=== PATIENT | female | born 1990 | race Caucasian/White ===

== ENCOUNTER 2021-01-23 20:19 | Emergency (ER) | payer OTHER, SELFPAY ==
[2021-01-23 20:52] VITALS: BP 120/77; PULSE 80; RESP 16; TEMP 36.6; O2SAT 100; BMI 37.3
[2021-01-23 21:20] LABS: Appearance Urine HAZY; Color Urine YELLOW; Glucose Urine UA NEG (NEG); Leukocyte Esterase Urine NEG (NEG); Nitrite Urine NEG (NEG); Specific Gravity - Urine 1.025 (1.005-1.025); Urine Blood NEG (NEG); Urine Ketones NEG (NEG); Urine Protein NEG (NEG-TRACE)
[2021-01-23 21:23] LABS: UPreg QC Valid YES; Urine Pregnancy NEGATIVE (NEGATIVE)
--- NOTE | 2021-01-23 21:42 | ED.ABDPAIN ---
HPI - Abdominal Pain General Chief Complaint: Abdominal Pain Stated Complaint: dizzy, n/v/d, abd pain Time Seen by Provider: 01/23/21 21:41 Source: patient Mode of arrival: ambulatory Limitations: no limitations History of Present Illness HPI narrative: 30 yo female otherwise healthy works as [employer] WORK[employer] a lot of her clients have dizziness and diarrhea, she has both her COVID shots - felt dizzy at work and then noted some diarrhea feels fine now, her boss made her come get checked out. MD elicited complaint: abdominal pain Pertinent past history: none Onset (ago): hour(s) (3) Pain Consistency: now resolved Location: periumbilical Severity: mild Quality: cramping Radiation: none Migration to: no migration Exacerbating factors: nothing Relieving factors: nothing Context: sick contacts Associated symptoms: nausea, diarrhea and other (dizziness) Related Data Allergies Allergy/AdvReac Type Severity Reaction Status Date / Time mushroom Allergy Intermediate HIVES Verified 01/23/21 20:51 amoxicillin [AMOXICILLIN] Allergy Unknown ITCHY Verified 01/23/21 20:51 sulfamethoxazole Allergy Unknown HIVES Verified 01/23/21 20:51 [From BACTRIM] trimethoprim [From BACTRIM] Allergy Unknown HIVES Verified 01/23/21 20:51 mushrooms Allergy Unknown Swelling Uncoded 01/23/21 20:51 Review of Systems Review of Systems Constitutional : No Weight loss, No Fever, No Chills ENT/Mouth : No sore throat, No Rhinorrhea Eyes: No Swelling, No Redness Cardiovascular : No Chest Pain, No SOB, NoEdema Respiratory : No Cough, No Sputum, No Wheezing Gastrointestinal : Positive Nausea, no Vomiting, positive Diarrhea, positive abdominal Pain, No Hematochezia, No Melena Genitourinary : No Dysuria, No Urinary Frequency, No Hematuria, No Urgency Musculoskeletal : No joint pain, No Myalgias, No Joint Swelling Skin : No Skin Lesions, No rash Neuro : No Weakness, No Numbness, pos Dizziness, No Headache Psych : No Anxiety/Panic, No Depression Heme/Lymph: No Bruising, No Lymphadenopathy Endocrine : No Polyuria, No Polydipsia All other systems reviewed and are negative. Physical Exam Vital Signs: Vital Signs: Last Vital Signs Temp 98 F 01/23/21 20:52 Pulse 80 01/23/21 20:52 Resp 16 01/23/21 20:52 BP 120/77 01/23/21 20:52 Pulse Ox 100 01/23/21 20:52 Body Mass Index 37.3 Appearance: Alert. Oriented X3. No acute distress. Eyes: Pupils equal, round and reactive to light. ENT: Pharynx normal. Neck: Normal inspection. Neck supple. CVS: Normal heart rate and rhythm. Pulses normal. Respiratory: No respiratory distress. Breath sounds normal. Abdomen: Soft and non-tender. Skin: Skin warm and dry. Normal skin color. Normal skin turgor. Extremities: No lower extremity edema. No calf ttp Neuro: Oriented X 3. No motor deficit. No sensory deficit. 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, she has both her COVID shots - felt dizzy at work and then noted some diarrhea feels fine now, her boss made her come get checked out at this time the patient looks well not toxic, tolerating PO, benign exam - basic labs, UPT and fluids ordered Lab Data Result diagrams: 01/23/21 21:47 01/23/21 21:47 Labs: Lab Results 01/23/21 01/23/21 Range/Units 21:09 21:09 Urine Color YELLOW Urine Appearance HAZY Urine pH 6.0 (5.0-8.0) Ur Specific Morrow 1.025 (1.005-1.025) Urine Protein NEG (NEG-TRACE) MG/DL Urine Glucose (UA) NEG (NEG) MG/DL Urine Ketones NEG (NEG) MG/DL Urine Blood NEG (NEG) Urine Nitrite NEG (NEG) Ur Leukocyte Esterase NEG (NEG) Urine Test NEGATIVE (NEGATIVE) Discharge Plan Discharge Clinical Impression: Diarrhea Patient Disposition: Home, Self-Care Instructions: Acute Diarrhea (ED) Additional Instructions: return to ED for any worsening symptoms or concerns Referrals: Physician,Unknown [Primary Care Provider] - 2 days (PCP if not better) Stand Alone Forms: Work/School Release [facility] Past Medical History Attestation statement: The following information was validated with the patient. Medical History Anxiety Asthma Bipolar 1 disorder Bladder stone DDD (degenerative disc disease) Depression High cholesterol Kidney stone OCD (obsessive compulsive disorder) Ovarian cyst Pre-diabetes Sepsis Surgical History H/O tubal ligation Social History Social History (Updated 01/23/21 @ 22:05 by Angelique Foster DO) Patient Tobacco Use Status: Never used Tobacco Use of substances other than those prescribed or required for medical reasons: No Advance Directives: No Advance Directives Information Provided: No
[2021-01-23 21:51] LABS: MANUAL DIFF FLAG NO
[2021-01-23 21:56] LABS: Basophils Percent Auto 0.3 % (0-2); Eosinophils Absolute Auto 0.1 X10*3/uL (0.0-0.4); Hematocrit 41.8 % (37-47); Hemoglobin 13.8 g/dl (12.0-16.0); Imm Gran Abs Auto 0.04 X10*3/uL (0.00-0.03); Imm Gran Pct Auto 0.4 % (0.0-0.4); Lymphocytes Absolute Auto 2.9 X10*3/uL (1.2-4.9); Lymphocytes Percent Auto 25.8 % (20-40); Mean Corpuscular Hemoglobin 30.6 pg (27.0-33.0); Mean Corpuscular Volume 92.7 fL (80-98); Mean Platelet Volume 9.6 fL (9.4-12.3); Monocytes Absolute Auto 0.8 X10*3/uL (0.1-1.2); Monocytes Percent Auto 6.9 % (2-11); Neutrophils Absolute Auto 7.3 X10*3/uL (2.0-8.3); Neutrophils Percent Auto 65.6 % (45-73); Platelet Count 248 X10*3/uL (160-400); Red Blood Count 4.51 X10*6/uL (4.20-5.50); Red Cell Distribution Width 12.6 % (11.0-16.0); White Blood Count 11.1 X10*3/uL (4.8-10.8)
[2021-01-23] MEDS: 0.9 % Sodium Chloride 1,000 ML 999 ML IVCONT (22:02)
[2021-01-23] MEDS: ondansetron HCL 4 MG/2 ML VIAL IVPUSH (22:02)
[2021-01-23 22:26] LABS: Alanine Aminotransferase 22 U/L (0-31); Albumin Level 4.4 g/dL (3.5-5.0); Alkaline Phosphatase 80 U/L (39-117); Anion Gap 14 (12-20); Aspartate Amino Transferase 18 U/L (5-31); Bilirubin Total 0.4 mg/dL (0.0-1.0); Blood Urea Nitrogen 16 mg/dL (9-16); Calcium 9.9 mg/dL (8.4-10.2); Carbon Dioxide 26 mmol/L (22-29); Chloride 104 mmol/L (96-108); Estimated Glomerular Filt Rate > 60; Glucose Random 108 mg/dL (60-115); Potassium 4.4 mmol/L (3.3-5.1); Sodium 140 mmol/L (135-145); Total Protein 7.7 g/dL (6.5-8.0)
== END 2021-01-23 23:06 | disposition home or self-care (01) ==
PROVIDERS: Emergency Provider Emergency Medicine
DX: R19.7 Diarrhea, unspecified (principal)
CPT/HCPCS: 36415; 80053; 81003; 81025; 85025; 96361; 96374; 99283; 99284; J2405

== ENCOUNTER 2021-06-13 14:26 | Emergency (ER) | payer OTHER, SELFPAY ==
--- NOTE | ~2021-06-13 | XR_ITS ---
EXAMINATION: XR WRIST, LEFT CLINICAL INFORMATION: Pain. No known injury. COMPARISON: None TECHNIQUE: PA, lateral, and oblique views of the left wrist. FINDINGS: There is normal bony mineralization. The ulnar variance is neutral. There is no fracture, dislocation, destructive process. The ulnar variance is neutral. There is no joint narrowing or erosive change. No chondrocalcinosis. XR/XR wrist LT 2V IMPRESSION: No arthropathy.
--- NOTE | ~2021-06-13 | US_ITS ---
EXAMINATION: US VENOUS WITH DOPPLER UPPER EXTREMITY, LEFT CLINICAL INFORMATION: Left upper extremity pain and swelling. COMPARISON: None TECHNIQUE: Ultrasound of the upper extremity is performed using compression sonography and color and pulse Doppler flow with assessment of augmentation of flow. There is also imaging and Doppler assessment of the jugular and subclavian veins. Spectral analysis with color-flow imaging is performed. FINDINGS: Left internal jugular vein, subclavian vein and axillary vein demonstrates normal color and spectral flow consistent with patency. The left basilic, brachial and cephalic veins demonstrate normal compressibility and color flow consistent with patency. The left radial and ulnar veins demonstrate normal compressibility and color flow consistent with patency. A few mildly prominent lymph nodes are noted within the left neck, the largest measures 2.5 x 1.5 x 1.2 cm, nonspecific. If the patient's symptoms progress, a followup ultrasound in 5 -7 days might be of value to exclude proximal propagation from a nonvisualized distal arm vein. US/US venous duplex UE LT IMPRESSION: No DVT demonstrated in the left upper extremity.
[2021-06-13 15:18] VITALS: BP 103/75; PULSE 82; RESP 18; TEMP 36.1; O2SAT 98; BMI 39.6
--- NOTE | 2021-06-13 16:38 | ED_ITS ---
HPI - Extremity Problem General Chief complaint: Extremity Injury, Upper Stated complaint: lt arm pain/swelling Time Seen by Provider: 06/13/21 16:30 Source: patient Mode of arrival: ambulatory Limitations: no limitations History of Present Illness HPI Narrative: 31-year-old female with a history of arthritis, fibromyalgia, OCD, PTSD, bipolar, anxiety,, depression, chronic pain here with complaints of left wrist pain for the last 4-5 days with radiation of pain up the arm into the shoulder. Feels like the entire arm is swollen and painful. No injury or trauma. Patient did previously have an injury to the wrist and has had some chronic pain in the site since the initial injury. She occasionally has intermittent numbness and tingling of the left hand but this is been going on for several months. No fevers or chills. No recent surgery or travel. No OCP use. Related Data Previous Rx's Medication Instructions Recorded cyclobenzaprine 10 mg tablet 10 mg PO TID PRN #10 tab 06/13/21 ketorolac 10 mg tablet 10 mg PO Q8H PRN #15 tab 06/13/21 Allergies Allergy/AdvReac Type Severity Reaction Status Date / Time mushroom Allergy Intermediate HIVES Verified 06/13/21 15:17 amoxicillin [AMOXICILLIN] Allergy Unknown ITCHY Verified 06/13/21 15:17 sulfamethoxazole Allergy Unknown HIVES Verified 06/13/21 15:17 [From BACTRIM] trimethoprim [From BACTRIM] Allergy Unknown HIVES Verified 06/13/21 15:17 mushrooms Allergy Unknown Swelling Uncoded 01/23/21 20:51 Review of Systems Review of Systems: Yes all other systems are reviewed and are negative Constitutional: Constitutional: Reports no additional constitutional complaints, Denies body ache(s), Denies chills, Denies fever(s), Denies headache(s) and Denies weakness Eyes: Eyes: Reports no additional eye complaints and Denies change in vision ENT: Reports system reviewed and no additional complaints, except as documented, Denies dizziness, Denies headache(s), Denies nasal congestion, Denies nasal discharge and Denies neck pain Cardiovascular: Cardiovascular: Reports no additional cardiovascular complaints, Denies chest pain, Denies leg edema and Denies dyspnea Respiratory: Respiratory: Reports no additional respiratory complaints, Denies cough and Denies dyspnea Gastrointestinal: Gastrointestinal: Reports no additional gastrointestinal complaints, Denies abdominal pain, Denies diarrhea, Denies nausea and Denies vomiting Genitourinary: Genitourinary: Reports no additional female genitourinary co mplaints and Denies urinary incontinence Musculoskeletal: Musculoskeletal: Reports no additional musculoskeletal complaints, Denies back pain, Reports arthralgias, Reports joint swelling, Reports limited range of motion, Denies neck pain, Denies numbness and Denies tingling Integumentary/Breasts: Skin/Breast: Reports system reviewed and no additional complaints, except as docu and Denies rash Neurologic: Reports system reviewed and no additional complaints, except as documented, Denies Abnormal speech present, Denies dizziness, Denies headache(s), Denies numbness, Denies tingling and Denies weakness PMFSH Past Medical History Attestation statement: The following information was validated with the patient. Source: old records reviewed and nursing notes reviewed Medical History Anxiety Asthma Bipolar 1 disorder Bladder stone DDD (degenerative disc disease) Depression High cholesterol Kidney stone OCD (obsessive compulsive disorder) Ovarian cyst Pre-diabetes Sepsis Surgical History H/O tubal ligation Social History Social History Patient Tobacco Use Status: Never used Tobacco Advance Directives: No Advance Directives Information Provided: No Patient : No Physical Exam Vital Signs: Vital Signs: Last Vital Signs Temp 96.9 F 06/13/21 15:18 Pulse 82 06/13/21 15:18 Resp 18 06/13/21 15:18 BP 103/75 06/13/21 15:18 Pulse Ox 98 06/13/21 15:18 Body Mass Index 39.6 Const: General: cooperative, healthy appearing, comfortable and no acute distress Orientation/consciousness: patient oriented x3 Limitations: no limitations HENMT: Head: Yes normal to inspection Ears: hearing grossly normal bilaterally General nose exam: Normal external nose present Face and sinus: Yes normal facial exam Mouth: Normal oral and palatal mucosa present Throat: Yes posterior oropharynx normal Eyes: General: appearance normal, both eyes and all related structures Pupils: Equal, round and reactive pupils present Neck: Neck: Yes normal visual inspection Chest: Chest palpation & inspection: normal inspection of the chest Resp: Effort & Inspection: normal respiratory effort Auscultation: clear to auscultation bilaterally Cardio: Rate: regular rate Rhythm: regular rhythm Peripheral pulses: P eripheral pulses 2+ throughout GI: Inspection: Yes normal to inspection Palpation (GI): Soft to palpation and nontender Auscultation: normal bowel sounds Back/Spine/Pelvis: Thoracic/Lumbar Spine: thoracic and lumbar spine normal to inspection Skin: General skin exam: no rashes or lesions noted Neuro: General: patient oriented x3, no focal motor deficits and normal sensation to monofilament Cranial nerves: Yes Equal, round and reactive pupils present Cognition (Neuro): normal cognition Speech: No Abnormal speech present Gait exam (Neuro): Normal gait present Motor exam (neuro): 5/5 motor strength present throughout Extrem: Other: Tenderness to the entire left wrist with limited range of motion due to pain. Patient also has diffuse muscle tenderness in the left forearm and upper extremity but has full range of motion of these joints. She does have some swelling appreciated in the left forearm down extending over the dorsal hand. There are palpable distal pulses noted. No warmth or redness. General: Yes normal to inspection Course Course Course Narrative: 31-year-old female here with left upper extremity swelling and pain. Will check x-rays, ultrasound to rule out DVT and provide analgesia 1900- x-ray shows no acute finding. Ultrasound is negative for DVT. Less likely DVT. Likely secondary to fibromyalgia, chronic arthritis and pain reviewed worrisome signs and symptoms of when to return to the emergency department. Comfortable discharge home. MDM - Extremity (Nontraumatic) Medical Records Attestation: I reviewed the patient's medical records. Lab Data Attestation: I reviewed the patient's lab results. Imaging Data left wrist x-ray: Attestation: I personally reviewed and interpreted this imaging study as follows: Radiologist's impression: EXAMINATION: XR WRIST, LEFT CLINICAL INFORMATION: Pain. No known injury.? COMPARISON: None? TECHNIQUE: PA, lateral, and oblique views of the left wrist. FINDINGS: There is normal bony mineralization. The ulnar variance is neutral. There is no fracture, dislocation, destructive process. The ulnar variance is neutral. There is no joint narrowing or erosive change. No chondrocalcinosis.? XR/XR wrist LT 2V IMPRESSION: No arthropathy. ? Venous US: Attestation: I personally reviewed and interpreted this imaging study as follows: Radiologist's impression: FINDINGS: Left internal jugular vein, subclavian vein and axillary vein demonstrates normal color and spectral flow consistent with patency. The left basilic, brachial and cephalic veins demonstrate normal compressibility and color flow consistent with patency. The left radial and ulnar veins demonstrate normal compressibility and color flow consistent with patency. A few mildly prominent lymph nodes are noted within the left neck, the largest measures 2.5 x 1.5 x 1.2 cm, nonspecific. If the patient's symptoms progress, a followup ultrasound in 5 -7 days might be of value to exclude proximal propagation from a nonvisualized distal arm vein. US/US venous duplex UE LT IMPRESSION: No DVT demonstrated in the left upper extremity Discharge Plan Discharge Clinical Impression: Arthritis, Fibromyalgia Patient Disposition: Home, Self-Care Instructions: Fibromyalgia (ED), Musculoskeletal Pain (ED) Additional Instructions: YOUR ULTRASOUND SHOWED NO BLOOD CLOT YOUR X-RAY LOOKS NORMAL HEAT OR ICE TO THE AREA GENTLE STRETCHING FOLLOW-UP WITH YOUR PRIMARY CARE DOCTOR Prescriptions: New ketorolac 10 mg tablet 10 mg PO Q8H PRN (Reason: pain) Qty: 15 RF: 0 cyclobenzaprine 10 mg tablet 10 mg PO TID PRN (Reason: muscle spasm) Qty: 10 RF: 0 Referrals: Gee Marcano MD [Primary Care Provider] - 2 days
[2021-06-13] MEDS: Ketorolac Tromethamine 60 MG/2 ML VIAL IM (16:54)
== END 2021-06-13 19:26 | disposition home or self-care (01) ==
PROVIDERS: Emergency Provider Internal Medicine; PCP Internal Medicine
DX: M19.032 Primary osteoarthritis, left wrist (principal); M79.7 Fibromyalgia; M79.89 Other specified soft tissue disorders; M25.532 Pain in left wrist
CPT/HCPCS: 73100; 93971; 96372; 99284; J1885

== ENCOUNTER 2022-04-14 13:17 | Outpatient (REF) | payer MEDICAID, SELFPAY ==
--- NOTE | ~2022-04-14 | XR_ITS ---
EXAMINATION: XR SHOULDER, RIGHT CLINICAL INFORMATION: Pain COMPARISON: Right shoulder radiographs 03/07/2015 TECHNIQUE: Four views of the right shoulder. FINDINGS: No acute fracture or dislocation. Joint spaces are maintained. Soft tissues are unremarkable. XR/XR shoulder RT min 2V IMPRESSION: Unremarkable shoulder radiographs.
--- NOTE | ~2022-04-14 | XR_ITS ---
EXAMINATION: XR lumbar spine 4V min CLINICAL INFORMATION: Reason for Exam RUE NUMBNESS AND WEAKNESS COMPARISON: Lumbar spine radiographs 03/07/2015 TECHNIQUE: 3 views of the lumbar spine FINDINGS: 5 nonrib-bearing lumbar-type vertebral bodies. Schmorl's nodes are noted in the lower thoracic spine. Vertebral body heights are otherwise maintained. Alignment is maintained. No pars defects. Disc space heights are maintained. Paravertebral soft tissues are unremarkable. XR/XR lumbar spine 4V min IMPRESSION: * Schmorl's nodes are noted in the lower thoracic spine. Otherwise unremarkable lumbar spine radiographs.
[2022-04-14 14:33] LABS: Alanine Aminotransferase 74 U/L (0-31); Albumin Level 4.6 g/dL (3.5-5.0); Alkaline Phosphatase 72 U/L (39-117); Aspartate Amino Transferase 43 U/L (5-31); Bilirubin Direct 0.4 mg/dL (0.0-0.5); Bilirubin Total 1.3 mg/dL (0.0-1.0); Total Protein 8.3 g/dL (6.5-8.0)
[2022-04-14 15:13] LABS: Monotest Negative (Negative)
[2022-04-15 05:04] LABS: Hepatitis A Antibody IgG Nonreactive (Nonreactive); Hepatitis A Antibody IgM 0.26 Index (0-0.79); ~Hepatitis A Antibody IgG 0.37 S/CO (0.00-0.99); ~Hepatitis A Antibody IgM Nonreactive (Nonreactive)
[2022-04-16 08:57] LABS: EBV-NA IgG Index >600.00 U/mL; EBV-VCA IgM Ab <36.00 U/mL
[2022-04-17 12:02] LABS: Mitochondrial Antibodies NEGATIVE (NEGATIVE)
[2022-04-18 13:56] LABS: Smooth Muscle Antibody <20 U (<20)
== END 2022-04-14 13:18 | disposition home or self-care (01) ==
LOC: HO.XRAY 13:17
PROVIDERS: Absent Provider Emergency Medicine; PCP Family Medicine; Visit Provider Nurse Practitioner
DX: M25.511 Pain in right shoulder (principal); R74.01 Elevation of levels of liver transaminase levels; E66.01 Morbid (severe) obesity due to excess calories; Z68.41 Body mass index [BMI] 40.0-44.9, adult; E28.2 Polycystic ovarian syndrome; R73.03 Prediabetes
CPT/HCPCS: 36415; 72110; 73030; 80076; 82105; 86015; 86255; 86256; 86308; 86664; 86665; 86708; 86709; 99202

== ENCOUNTER 2022-06-10 09:47 | Outpatient (REF) | payer MEDICAID, SELFPAY ==
--- NOTE | 2022-06-10 09:51 | ECG_ITS ---
Test Reason : SOFT TISSUE DISORDER Blood Pressure : / mmHG Vent. Rate : 055 BPM Atrial Rate : 055 BPM P-R Int : 146 ms QRS Dur : 100 ms QT Int : 406 ms P-R-T Axes : 019 056 030 degrees QTc Int : 388 ms Sinus bradycardia RSR' or QR pattern in V1 suggests right ventricular conduction delay Otherwise normal ECG When compared with ECG of 29-AUG-2015 16:08, Vent. rate has decreased BY 54 BPM Nonspecific T wave abnormality no longer evident in Anterior leads Referred By: Clarice Euceda Electronically Signed By:SANDRA CAMPOS MD
[2022-06-10 10:32] LABS: D Dimer High Sensitivity 193 NG/ML
[2022-06-10 10:36] LABS: Appearance Urine Clear; Color Urine Yellow; Glucose Urine UA Negative (Negative); Leukocyte Esterase Urine Trace (Negative); Nitrite Urine Negative (Negative); PH 6.5 (5.0-9.0); Specific Gravity - Urine 1.015 (1.005-1.025); UMIC TRIGGER UACC YES; Urine Blood Negative (Negative); Urine Ketones Negative (Negative); Urine Protein Negative (Neg-Trace)
[2022-06-10 10:41] LABS: Bacteria Urine None Seen (None Seen); Hyaline Casts Urine 0-2 /LPF (0-2); RBC Urine 0-2 /HPF (0-2); WBC Urine 0-5 /HPF (0-5)
[2022-06-10 11:03] LABS: Erythrocyte Sedimentation Rate 27 MM/HR (0-20)
[2022-06-10 11:22] LABS: B Type Natriuretic Peptide 34 pg/mL (<100)
[2022-06-10 14:56] LABS: C Reactive Protein 0.67 mg/dL (< or = 0.50); Rheumatoid Factor < 15.0 IU/mL (<15.0)
== END 2022-06-10 09:48 | disposition home or self-care (01) ==
LOC: HO.LAB 09:47
PROVIDERS: PCP Family Medicine; Visit Provider Nurse Practitioner
DX: R74.01 Elevation of levels of liver transaminase levels (principal); K21.9 Gastro-esophageal reflux disease without esophagitis; R06.02 Shortness of breath; E28.2 Polycystic ovarian syndrome; E66.01 Morbid (severe) obesity due to excess calories; Z68.41 Body mass index [BMI] 40.0-44.9, adult; M54.9 Dorsalgia, unspecified; M79.89 Other specified soft tissue disorders
CPT/HCPCS: 36415; 81001; 83880; 85379; 85652; 86140; 86431; 93005; 99212

== ENCOUNTER → 2022-09-10 09:41 | Outpatient (BNVA) | payer MEDICAID, SELFPAY | PROVIDERS: PCP Family Medicine; Visit Provider Nurse Practitioner Family | DX: M53.3 Sacrococcygeal disorders, not elsewhere classified (principal); M79.7 Fibromyalgia; M47.816 Spondylosis without myelopathy or radiculopathy, lumbar region; G89.29 Other chronic pain; M79.641 Pain in right hand; G56.01 Carpal tunnel syndrome, right upper limb; E66.01 Morbid (severe) obesity due to excess calories; Z68.42 Body mass index [BMI] 45.0-49.9, adult | CPT/HCPCS: 99202 ==

== ENCOUNTER 2022-09-23 12:58 | Outpatient (REF) | payer MEDICAID, SELFPAY ==
--- NOTE | ~2022-09-23 | XR_ITS ---
EXAMINATION: XR LUMBOSACRAL SPINE CLINICAL INFORMATION: Pain COMPARISON: 04/14/2022 TECHNIQUE: Three views of the lumbosacral spine. FINDINGS: The vertebral bodies and posterior elements are normal. The disc spaces are preserved and the vertebral alignment is normal. The paraspinal soft tissues are normal. XR/XR lumbar spine 2-3V IMPRESSION: Unremarkable examination.
--- NOTE | ~2022-09-23 | XR_ITS ---
EXAMINATION: XR BILATERAL HIPS WITH AP PELVIS CLINICAL INFORMATION: Pain COMPARISON: None TECHNIQUE: AP view of the pelvis and single views of each hip were obtained. FINDINGS: The bones and soft tissues are normal. No fracture. Sacroiliac and hip joints are normal. Pubic symphysis is normal. No abnormal soft tissue calcifications. XR/XR hip BI w PEL1V IMPRESSION: Normal pelvis and hips.
== END 2022-09-23 12:59 | disposition home or self-care (01) ==
LOC: HO.XRAY 12:58
PROVIDERS: Absent Provider Emergency Medicine; PCP Family Medicine; Visit Provider Nurse Practitioner Family
DX: M47.816 Spondylosis without myelopathy or radiculopathy, lumbar region (principal); M53.3 Sacrococcygeal disorders, not elsewhere classified; M54.50 Low back pain, unspecified; G89.29 Other chronic pain
CPT/HCPCS: 72100; 73521

== ENCOUNTER 2022-11-10 13:21 | Outpatient (REF) | payer MEDICAID, SELFPAY ==
--- NOTE | ~2022-11-10 | XR_ITS ---
EXAMINATION: XR KNEE, LEFT XR KNEE, RIGHT XR KNEE, BILATERAL CLINICAL INFORMATION: Bilateral knee pain. COMPARISON: 09/05/2013 TECHNIQUE: AP standing views of both knees and lateral and sunrise views of both knees. FINDINGS: Right Knee: There is no evidence of acute fracture or dislocation of the right knee. Right knee joint spaces are maintained. No right knee effusion. There is minimal spurring seen about the medial joint space. Left Knee: There is no evidence of acute fracture or dislocation of the left knee. Joint spaces are maintained. No effusion is appreciated. XR/XR knee standing BI IMPRESSION: No significant bony abnormality or effusions involving the right or left knees.
--- NOTE | ~2022-11-10 | XR_ITS ---
EXAMINATION: XR KNEE, LEFT XR KNEE, RIGHT XR KNEE, BILATERAL CLINICAL INFORMATION: Bilateral knee pain. COMPARISON: 09/05/2013 TECHNIQUE: AP standing views of both knees and lateral and sunrise views of both knees. FINDINGS: Right Knee: There is no evidence of acute fracture or dislocation of the right knee. Right knee joint spaces are maintained. No right knee effusion. There is minimal spurring seen about the medial joint space. Left Knee: There is no evidence of acute fracture or dislocation of the left knee. Joint spaces are maintained. No effusion is appreciated. XR/XR knee RT 2V IMPRESSION: No significant bony abnormality or effusions involving the right or left knees.
--- NOTE | ~2022-11-10 | XR_ITS ---
EXAMINATION: XR KNEE, LEFT XR KNEE, RIGHT XR KNEE, BILATERAL CLINICAL INFORMATION: Bilateral knee pain. COMPARISON: 09/05/2013 TECHNIQUE: AP standing views of both knees and lateral and sunrise views of both knees. FINDINGS: Right Knee: There is no evidence of acute fracture or dislocation of the right knee. Right knee joint spaces are maintained. No right knee effusion. There is minimal spurring seen about the medial joint space. Left Knee: There is no evidence of acute fracture or dislocation of the left knee. Joint spaces are maintained. No effusion is appreciated. XR/XR knee LT 2V IMPRESSION: No significant bony abnormality or effusions involving the right or left knees.
== END 2022-11-10 13:22 | disposition home or self-care (01) ==
LOC: HO.HOSX 13:21
PROVIDERS: PCP Family Medicine; Visit Provider Physician Assistant
DX: M25.562 Pain in left knee (principal); M25.561 Pain in right knee; M54.16 Radiculopathy, lumbar region; M79.7 Fibromyalgia
CPT/HCPCS: 73560; 73565; 99202

== ENCOUNTER → 2022-12-17 10:20 | Outpatient (BNVA) | payer MEDICAID, SELFPAY | PROVIDERS: PCP Family Medicine; Visit Provider Nurse Practitioner Family | DX: M53.3 Sacrococcygeal disorders, not elsewhere classified (principal); M47.816 Spondylosis without myelopathy or radiculopathy, lumbar region; M79.18 Myalgia, other site; M79.7 Fibromyalgia; E66.01 Morbid (severe) obesity due to excess calories; Z68.41 Body mass index [BMI] 40.0-44.9, adult | CPT/HCPCS: 99212 ==

== ENCOUNTER 2022-12-29 09:38 | Outpatient (REF) | payer MEDICAID, SELFPAY ==
--- NOTE | ~2022-12-29 | XR_ITS ---
EXAMINATION: XR HAND, RIGHT CLINICAL INFORMATION: Pain. COMPARISON: Radiographs dated 03/07/2017. TECHNIQUE: PA, lateral, and oblique views of the right hand. FINDINGS: Bony alignment and mineralization are normal. No definite fracture is seen, and there is no dislocation. There is a mild ulnar positive variance. There is a tiny well-corticated rounded ossific density situated adjacent to the ulnar styloid, which likely represents an accessory ossification center or minimal chronic avulsion fragment. This was as well present on the radiographs dated 02/23/2017. Joint spaces are maintained. No erosions or soft tissue calcifications. XR/XR hand RT min 3V IMPRESSION: Stable examination. No acute fracture or dislocation is seen. There is no unusual degenerative change noted.
== END 2022-12-29 09:39 | disposition home or self-care (01) ==
LOC: HO.HOSX 09:38
PROVIDERS: Visit Provider Physician Assistant
DX: M79.641 Pain in right hand (principal); G89.29 Other chronic pain; G56.00 Carpal tunnel syndrome, unspecified upper limb
CPT/HCPCS: 73130; 99212

== ENCOUNTER 2023-01-12 07:11 | Outpatient (REF) | payer MEDICAID, SELFPAY ==
--- NOTE | ~2023-01-12 | FL_ITS ---
EXAMINATION: XR FLUOROSCOPY WITH IMAGES CLINICAL INFORMATION: Sacrococcygeal disorders, not elsewhere classified. COMPARISON: None available. TECHNIQUE: Fluoroscopy Supervised By: Dr. Courtney. Fluoroscopy Time: 0.1 minutes. Cumulative Dose: 4.26 mGy. DAP: 1.16 Gycm2. Images: 1. FINDINGS: Image demonstrates needle placement and contrast injection over the right sacroiliac joint FL/FL guidance in treatment room IMPRESSION: Fluoroscopy guidance for right sacroiliac joint injection
== END 2023-01-12 07:12 | disposition home or self-care (01) ==
LOC: CF 07:11
PROVIDERS: PCP Family Medicine; Visit Provider Anesthesiology
DX: M53.3 Sacrococcygeal disorders, not elsewhere classified (principal); M79.7 Fibromyalgia; M47.816 Spondylosis without myelopathy or radiculopathy, lumbar region; E66.01 Morbid (severe) obesity due to excess calories; Z68.41 Body mass index [BMI] 40.0-44.9, adult
CPT/HCPCS: 27096

== ENCOUNTER → 2023-01-22 14:09 | Outpatient (BNVA) | payer MEDICAID, SELFPAY | PROVIDERS: PCP Family Medicine; Visit Provider Nurse Practitioner Family | DX: M79.7 Fibromyalgia (principal); M53.3 Sacrococcygeal disorders, not elsewhere classified; M47.816 Spondylosis without myelopathy or radiculopathy, lumbar region; M79.18 Myalgia, other site; E66.01 Morbid (severe) obesity due to excess calories; Z68.41 Body mass index [BMI] 40.0-44.9, adult | CPT/HCPCS: 99212 ==

== ENCOUNTER 2023-01-28 09:33 | Outpatient (REF) | payer MEDICAID, SELFPAY ==
--- NOTE | 2023-01-28 09:37 | EMG_ITS ---
Right median and ulnar motor and sensory studies were performed. Right radial sensory study was performed. Median and lateral antecubital sensory studies were performed and paraspinal muscles were tested with a needle. IMPRESSION: Mild right ulnar neuropathy across cubital tunnel. MD CARLOS Miller/CODEY / [id number]
== END 2023-01-28 09:34 | disposition home or self-care (01) ==
LOC: HO.NEURO 09:33
PROVIDERS: PCP Family Medicine; Visit Provider Physician Assistant
DX: M79.641 Pain in right hand (principal); G89.29 Other chronic pain
CPT/HCPCS: 95886; 95910

== ENCOUNTER 2023-02-05 07:59 | Day surgery (SDC) | payer MEDICAID, SELFPAY ==
--- NOTE | 2023-02-04 09:22 | HO.ANESPROP2 ---
Documented by User: Ashley Leal NP 02/04/23 09:25 HPI - Anesthesia Eval Consult details Narrative: 32yo F for Right Therapeutic Sacroiliac Joint Injection *Multiple Allergies* PMFSH Active Problems Active Problems: All Active Problems (Updated 12/29/22 @ 09:21 by Chely Hernandez) Right hand pain (Acute) Lumbar radiculopathy (Acute) Carpal tunnel syndrome (Acute) Chronic pain of right hand (Acute) Sacroiliac joint pain (Acute) Lumbar spondylosis (Acute) Myofascial pain (Acute) Shortness of breath (Acute) Swelling of extremity (Acute) Back pain (Acute) GERD (gastroesophageal reflux disease) (Acute) Pre-diabetes (Acute) Transaminitis (Acute) Marijuana use (Acute) Fibromyalgia (Acute) PCOS (polycystic ovarian syndrome) (Acute) Morbid obesity with BMI of 40.0-44.9, adult (Acute) Past Medical History Medical History Alcohol abuse Allergic rhinitis Anxiety Asthma Bipolar 1 disorder Chronic low back pain DDD (degenerative disc disease) Depression High cholesterol History of stent insertion of renal artery Multiple drug allergies Nephrolithiasis Nocturnal dyspnea OCD (obsessive compulsive disorder) Ovarian cyst Pre-diabetes PTSD (post-traumatic stress disorder) Sepsis Family History Family History Maternal Grandmother Breast cancer Maternal Grandfather Colon cancer Sister Cancer Surgical History Surgical History H/O cystoscopy H/O lithotripsy H/O tubal ligation History of esophagogastroduodenoscopy (EGD) Social History Social History Alcohol intake: former Patient Tobacco Use Status: Former Tobacco user Quit Date: 2020 Tobacco use type: Cigarette Years Smoked: 15 Smoked in Last 30 Days: No Use of substances other than those prescribed or required for medical reasons: Yes Substance Use Type: Marijuana Substance Use Frequency: Daily Are you DNR?: No Advance Directives: No Advance Directives Information Provided: Yes Current occupational status: unemployed Meds Allergies Allergy/AdvReac Type Severity Reaction Status Date / Time amoxicillin [AMOXICILLIN] Allergy Severe ITCHY Verified 02/05/23 08:27 sulfamethoxazole Allergy Severe HIVES Verified 02/05/23 08:27 [From BACTRIM] trimethoprim [From BACTRIM] Allergy Severe HIVES Verified 02/05/23 08:27 acetaminophen [From Tylenol] Allergy Intermediate Hives Verified 02/05/23 08:27 mushroom Allergy Intermediate HIVES Verified 02/05/23 08:26 naproxen Allergy Intermediate Hives Verified 02/05/23 08:27 promethazine Allergy Intermediate Hives Verified 02/05/23 08:27 gabapentin AdvReac Severe suicidal Verified 02/05/23 08:26 ideation lactose AdvReac Severe intolerance Verified 02/05/23 08:26 to lactose acetaminophen Allergy Intermediate Hives Uncoded 02/05/23 08:27 Iron polypeptide Allergy Intermediate Itching Uncoded 02/05/23 08:27 mushrooms Allergy Intermediate Swelling Uncoded 02/05/23 08:27 Home Medications Medication Instructions Recorded Confirmed Last Taken Type albuterol sulfate 90 mcg/actuation 2 puff inhalation Q4-6H PRN 09/10/22 02/05/23 Unknown History aerosol inhaler (Ventolin HFA) wheezing diclofenac sodium 1 % topical gel See Rx Instructions .Route .COMPLEX 09/10/22 02/05/23 Unknown History lamotrigine 100 mg tablet 400 mg PO BID 01/22/23 02/05/23 Unknown History omeprazole 20 mg capsule,delayed 20 mg PO QAM 01/22/23 02/05/23 Unknown History release Exam Exam Date and Time: February 04, [id number] Narrative Narrative: EKG 2021 Vent. Rate : 055 BPM ? ? Atrial Rate : 055 BPM ?? P-R Int : 146 ms? QRS Dur : 100 ms ? ? QT Int : 406 ms ? ? ? P-R-T Axes : 019 056 030 degrees ?? QTc Int : 388 ms ? Sinus bradycardia RSR' or QR pattern in V1 suggests right ventricular conduction delay Otherwise normal ECG When compared with ECG of 29-AUG-2015 16:08, Vent. rate has decreased BY? 54 BPM Nonspecific T wave abnormality no longer evident in Anterior leads Assessment and Plan Assessment Anesthesia Assessment: Chart Reviewed Documented by User: Yuval Laazr MD 02/05/23 08:57 PMFSH Past Medical History Medical History Alcohol abuse Allergic rhinitis Anxiety Asthma Bipolar 1 disorder Chronic low back pain DDD (degenerative disc disease) Depression High cholesterol History of stent insertion of renal artery Multiple drug allergies Nephrolithiasis Nocturnal dyspnea OCD (obsessive compulsive disorder) Ovarian cyst Pre-diabetes PTSD (post-traumatic stress disorder) Sepsis Family History Family History Maternal Grandmother Breast cancer Maternal Grandfather Colon cancer Sister Cancer Family history of problems with anesthesia: No Surgical History Surgical History H/O cystoscopy H/O lithotripsy H/O tubal ligation History of esophagogastroduodenoscopy (EGD) History of Problems with Anesthesia: No Social History Social History Alcohol intake: former Patient Tobacco Use Status: Former Tobacco user Quit Date: 2020 Tobacco use type: Cigarette Years Smoked: 15 Smoked in Last 30 Days: No Use of substances other than those prescribed or required for medical reasons: Yes Substance Use Type: Marijuana Substance Use Frequency: Daily Are you DNR?: No Advance Directives: No Advance Directives Information Provided: Yes Current occupational status: unemployed Meds Allergies Allergy/AdvReac Type Severity Reaction Status Date / Time amoxicillin [AMOXICILLIN] Allergy Severe ITCHY Verified 02/05/23 08:27 sulfamethoxazole Allergy Severe HIVES Verified 02/05/23 08:27 [From BACTRIM] trimethoprim [From BACTRIM] Allergy Severe HIVES Verified 02/05/23 08:27 acetaminophen [From Tylenol] Allergy Intermediate Hives Verified 02/05/23 08:27 mushroom Allergy Intermediate HIVES Verified 02/05/23 08:26 naproxen Allergy Intermediate Hives Verified 02/05/23 08:27 promethazine Allergy Intermediate Hives Verified 02/05/23 08:27 gabapentin AdvReac Severe suicidal Verified 02/05/23 08:26 ideation lactose AdvReac Severe intolerance Verified 02/05/23 08:26 to lactose acetaminophen Allergy Intermediate Hives Uncoded 02/05/23 08:27 Iron polypeptide Allergy Intermediate Itching Uncoded 02/05/23 08:27 mushrooms Allergy Intermediate Swelling Uncoded 02/05/23 08:27 Home Medications Medication Instructions Recorded Confirmed Last Taken Type albuterol sulfate 90 mcg/actuation 2 puff inhalation Q4-6H PRN 09/10/22 02/05/23 Unknown History aerosol inhaler (Ventolin HFA) wheezing diclofenac sodium 1 % topical gel See Rx Instructions .Route .COMPLEX 09/10/22 02/05/23 Unknown History lamotrigine 100 mg tablet 400 mg PO BID 01/22/23 02/05/23 Unknown History omeprazole 20 mg capsule,delayed 20 mg PO QAM 01/22/23 02/05/23 Unknown History release Exam Airway Mallampati Class: III TM Dist: >3cm Neck ROM: Limited Heart: rrr Lungs: cta Assessment and Plan Final Anesthetic Review Family History of Problems with Anesthesia: No History of Problems with Anesthesia: No NPO: Yes ASA Class: III Final Preanesthetic Review: No Changes in Pt Med Stat, Meds/Allgs Chart Reviewed, Consent Obtained/Reviewed and Anes Risks/Benef Reviewed Patient Risk: Intermediate Procedure Risk: Low Anesthetic Plan Anesthetic Plan: MAC: and Agree w/ Assess. and Plan Disposition: Standard PACU
--- NOTE | ~2023-02-05 | FL_ITS ---
EXAMINATION: XR FLUOROSCOPY WITH IMAGES CLINICAL INFORMATION: Therapeutic sacroiliac joint injection, right COMPARISON: None available. TECHNIQUE: Fluoroscopy Supervised By: Dr. Maciej Courtney. Fluoroscopy Time: 0.1 minute. Cumulative Dose: 3.32 mGy. DAP: 0.877 Gycm2. Images: 1. FINDINGS: There is single image reveals needle position of the right SI joint and contrast opacifying the soft tissues for pain management. The joint space is maintained normal. No gross bony abnormality. FL/FL guidance in OR IMPRESSION: Fluoroscopy was provided to referring physician for right SI joint pain management
[2023-02-05 08:27] VITALS: BMI 36.9
[2023-02-05 08:35] VITALS: PULSE 71; RESP 18; O2SAT 96
[2023-02-05] MEDS: Albuterol Sulfate (0.083%) 2.5 MG/3 ML VIAL.NEB INHALE (08:35)
[2023-02-05 08:42] VITALS: BP 162/93; PULSE 97; RESP 16; TEMP 36.6; O2SAT 97
--- NOTE | 2023-02-05 08:55 | MHC.SHP ---
Pre-Procedural Eval Section A Date of Service: 02/05/23 The patient is an INPATIENT: No Changes since office visit: Yes Patient answered all questions The History & Physical has been completed within 30 days and I have reviewed it.: No Section B Chief Complaint: Sacrococcygeal disorders, not elsewhere classified Details of Present Illness: as above Relevant Family History (Specify if Yes): No Relevant Social History: None Present Medications: None Medical History: No relevant PMH History of Previous Operations: No relevant previous surgery Allergies: Allergies Allergy/AdvReac Type Severity Reaction Status Date / Time amoxicillin [AMOXICILLIN] Allergy Severe ITCHY Verified 02/05/23 08:27 sulfamethoxazole Allergy Severe HIVES Verified 02/05/23 08:27 [From BACTRIM] trimethoprim [From BACTRIM] Allergy Severe HIVES Verified 02/05/23 08:27 acetaminophen [From Tylenol] Allergy Intermediate Hives Verified 02/05/23 08:27 mushroom Allergy Intermediate HIVES Verified 02/05/23 08:26 naproxen Allergy Intermediate Hives Verified 02/05/23 08:27 promethazine Allergy Intermediate Hives Verified 02/05/23 08:27 gabapentin AdvReac Severe suicidal Verified 02/05/23 08:26 ideation lactose AdvReac Severe intolerance Verified 02/05/23 08:26 to lactose acetaminophen Allergy Intermediate Hives Uncoded 02/05/23 08:27 Iron polypeptide Allergy Intermediate Itching Uncoded 02/05/23 08:27 mushrooms Allergy Intermediate Swelling Uncoded 02/05/23 08:27 Review of Systems Sugical H&P ROS: Negative: Constitution, Cardiovascular, Respiratory, Neurological, Psychiatric, Hem-Onc, Allergic/Immunologic, Gastrointestinal, Genitourinary, Musculoskeletal, Integumentary, Endocrine and Eyes/Ears/Nose/Throat Exam Surgical H&P Exam: Normal: HEENT, Normal: Heart, Normal: Lungs, Normal: Extremities, Normal: Abdomen, Normal: Skin and Normal: Neurological Plan Diagnosis/Plan: Unchanged I have reviewed the history and physical and performed a pertinent physical examination on my patient. No changes have occurred unless specified. Time Spent With Patient Time: Total time managing care of this patient today ____ minutes.
[2023-02-05] MEDS: Lactated Ringers 1,000 ML 100 ML IVCONT (08:58)
--- NOTE | 2023-02-05 09:00 | PC.NURSE ---
Patient arrived to preop. Respiratory nurse administering PRN albuterol neb at bedside due to diminished lung sounds throughout. Dr. Courtney at bedside talking to patient during this treatment. Mouthpiece of nebulizer treatment constantly removed from patients mouth to answer questions. This observed by Dr. Soriano and because of this, new order for additional 2 puffs Ventolin prior to OR.
[2023-02-05] MEDS: Albuterol Sulfate 90 MCG 8 GM INHALER 2 PUFF INHALE (09:48)
--- NOTE | 2023-02-05 10:07 | P.BOP_ITS ---
Brief Operative Note Date of Service: 02/05/23 Pre-op diagnosis: sacroiliitis Post-op diagnosis: same Procedure: right SI joint injection Surgeon: Maciej Courtney MD Anesthesia: MAC Was an Cigarette Making Machine Operator used for this Procedure?: No Estimated blood loss (mL): 0 Condition: stable Disposition: PACU
--- NOTE | 2023-02-05 10:08 | W.PM.OPN ---
Operative Note Operative Note Date of Service: 02/05/23 Narrative: Right Therapeutic sacroiliac joint injection. Informed consent was explained thoroughly to the patient.? All questions about benefits and risks for the procedure were answered. Patient came to the operating room and was positioned prone on the operating table with the pillow under the pelvis. [employer] [employer] monitors were applied and patient was deeply sedated. Despite being sedated patient remained restless on stimulation during the case. Anesthesiologist suggested that patient is hard to get anesthesia because of her chronic cannabis consumption. Time out was performed delineating name and of the patient, allergies and the nature of the procedure. ?The lower back and buttocks of the patient were prepped with ChloraPrep prepped and draped with sterile utility towels.? C-arm was brought over the operating field and sq picture of patient's pelvis was demonstrated on the screen.? For the right joint tilting C-arm contralateral to the site of the joint the most posterior portion of the joints was superimposed with anterior silhouette of the joint.? Skin was injected in the projection of the joint slightly medial to the location of the joint with 25 gauge 1/2 inch needle using local lidocaine 2% .After that 22 gauge 3 and 1/2 inch needle was driven to the right joint in tunnel vision fashion.? When needle entered the joint capsule injection of the contrast was performed demonstrating intra-articular and periarticular spread of the contrast.? After that 5 cc. of ropivacaine 0.5%?mixed with Kenalog 40 mgwas injected into the? joint.? Upon completion of the injections the needle was removed, sterile dressing was applied.? Upon completion of the injection patient was taken outside of the operating room to the recovery room where she? recovered uneventfully.
[2023-02-05 10:15] VITALS: BP 129/82; PULSE 86; RESP 16; TEMP 36.6; O2SAT 95
[2023-02-05 10:30] VITALS: BP 128/73; PULSE 74; RESP 16; TEMP 36.3; O2SAT 96
== END 2023-02-05 10:39 | disposition home or self-care (01) ==
PROVIDERS: PCP Family Medicine; Visit Provider Anesthesiology
PROC: 3E0U33Z Introduction of Anti-inflammatory into Joints, Percutaneous Approach (ICD-10-PCS; CPT 27096; principal; 2023-02-05 09:50)
DX: M53.3 Sacrococcygeal disorders, not elsewhere classified (principal); M47.816 Spondylosis without myelopathy or radiculopathy, lumbar region; M79.7 Fibromyalgia; J45.909 Unspecified asthma, uncomplicated; F12.90 Cannabis use, unspecified, uncomplicated; Z88.0 Allergy status to penicillin; Z88.2 Allergy status to sulfonamides
CPT/HCPCS: 27096; 94640; J3301

== ENCOUNTER → 2023-02-05 07:59 | Outpatient (BNV) | payer MEDICAID, SELFPAY | PROVIDERS: PCP Family Medicine; Visit Provider Anesthesiology | DX: M53.3 Sacrococcygeal disorders, not elsewhere classified (principal) | CPT/HCPCS: 27096; 99499 ==

== ENCOUNTER 2023-02-10 09:24 | Outpatient (REF) | payer MEDICAID, SELFPAY ==
--- NOTE | ~2023-02-10 | MR_ITS ---
EXAMINATION: MRI HAND WITHOUT CONTRAST, RIGHT CLINICAL INFORMATION: Carpal tunnel syndrome COMPARISON: X-ray 12/29/2022 TECHNIQUE: MRI of the wrist without contrast is performed in a 1.5 Cassie high-field scanner. FINDINGS: BONE/JOINTS: The small ossific density seen adjacent to the ulna styloid on the recent x-ray is not evident on the MRI. Small degenerative appearing cyst in the capitate. No evidence of acute fracture or dislocation. Mild first MCP arthritis. No erosive changes are identified. No significant wrist joint effusion. SOFT TISSUE: No focal fluid collections are seen. MUSCLE/TENDONS: Intact. No appreciable tenosynovitis. LIGAMENTS: The scapholunate, lunotriquetral ligaments and TFCC are not well evaluated in this large [id number], the proximal margin of the study.. MEDIAN NERVE: Appears within normal limits. MR/MR hand RT wo con IMPRESSION: 1. Mild first CMC arthritis. No evidence of acute fracture. 2. Median nerve appears within normal limits. Further evaluation with EMG as clinically warranted.
== END 2023-02-10 09:25 | disposition home or self-care (01) ==
LOC: HO.MRI 09:24
PROVIDERS: PCP Family Medicine; Visit Provider Physician Assistant
DX: G56.01 Carpal tunnel syndrome, right upper limb (principal); M79.641 Pain in right hand
CPT/HCPCS: 73218

== ENCOUNTER 2023-08-16 10:16 | Outpatient (AMB) | payer MEDICAID, SELFPAY ==
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
[2023-08-16 10:30] VITALS: BP 147/93; PULSE 77; O2SAT 98; BMI 35.7
== END 2023-08-16 10:56 | disposition home or self-care (01) ==
PROVIDERS: PCP Family Medicine; Visit Provider Nurse Practitioner Family
DX: M53.3 Sacrococcygeal disorders, not elsewhere classified (principal); Z91.81 History of falling; M47.816 Spondylosis without myelopathy or radiculopathy, lumbar region
CPT/HCPCS: 99214

== ENCOUNTER → 2023-08-16 10:16 | Outpatient (BNVA) | payer MEDICAID, SELFPAY | PROVIDERS: PCP Family Medicine; Visit Provider Nurse Practitioner Family | DX: M53.3 Sacrococcygeal disorders, not elsewhere classified (principal); M47.816 Spondylosis without myelopathy or radiculopathy, lumbar region; Z91.81 History of falling | CPT/HCPCS: 99212 ==

== ENCOUNTER 2023-08-17 11:43 | Outpatient (REF) | payer MEDICAID, SELFPAY ==
--- NOTE | ~2023-08-17 | XR_ITS ---
EXAMINATION: XR SACRUM AND COCCYX CLINICAL INFORMATION: Sacrococcygeal disorders COMPARISON: None available. TECHNIQUE: 2 views of the sacrum and 2 views of the coccyx were obtained. FINDINGS: There are no fractures. No bone, joint or soft tissue abnormality is demonstrated. XR/XR sacrum coccyx min 2V IMPRESSION: Unremarkable examination.
--- NOTE | ~2023-08-17 | XR_ITS ---
EXAMINATION: XR LUMBOSACRAL SPINE WITH OBLIQUES CLINICAL INFORMATION: 33-year-old female with pain following fall COMPARISON: None available. TECHNIQUE: AP, both oblique, and lateral views of the lumbar spine. Lateral view of the lumbosacral junction. FINDINGS: There are 5 not ribs bearing vertebral bodies. The vertebral bodies and posterior elements are normal. The disc spaces are preserved and the vertebral alignment is normal. There is no evidence of spondylolysis or listhesis. Sacroiliac joints are preserved. The paraspinal soft tissues are normal. XR/XR lumbar spine 4V min IMPRESSION: Unremarkable examination.
== END 2023-08-17 11:44 | disposition home or self-care (01) ==
LOC: HO.XRAY 11:43
PROVIDERS: PCP Family Medicine; Visit Provider Nurse Practitioner Family
DX: M53.3 Sacrococcygeal disorders, not elsewhere classified (principal); M47.816 Spondylosis without myelopathy or radiculopathy, lumbar region; Z91.81 History of falling
CPT/HCPCS: 72110; 72220

== ENCOUNTER 2023-08-30 10:09 | Outpatient (AMB) | payer MEDICAID, SELFPAY ==
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
[2023-08-30 10:14] VITALS: BP 109/82; PULSE 90; O2SAT 97; BMI 35.6
== END 2023-08-30 10:25 | disposition home or self-care (01) ==
PROVIDERS: PCP Family Medicine; Visit Provider Nurse Practitioner Family
DX: M53.3 Sacrococcygeal disorders, not elsewhere classified (principal); M47.816 Spondylosis without myelopathy or radiculopathy, lumbar region; M54.9 Dorsalgia, unspecified
CPT/HCPCS: 99213

== ENCOUNTER → 2023-08-30 10:09 | Outpatient (BNVA) | payer MEDICAID, SELFPAY | PROVIDERS: PCP Family Medicine; Visit Provider Nurse Practitioner Family | DX: M53.3 Sacrococcygeal disorders, not elsewhere classified (principal); M47.816 Spondylosis without myelopathy or radiculopathy, lumbar region; M54.9 Dorsalgia, unspecified | CPT/HCPCS: 99212 ==

== ENCOUNTER 2023-11-08 14:29 | Outpatient (REF) | payer MEDICAID, SELFPAY ==
[2023-11-08 16:11] LABS: MANUAL DIFF FLAG NO
[2023-11-08 16:21] LABS: Basophils Percent Auto 0.3 % (0-2); Eosinophils Absolute Auto 0.1 X10*3/uL (0.0-0.4); Eosinophils Percent Auto 0.8 % (0-4); Hematocrit 46.5 % (37.0-47.0); Hemoglobin 15.2 g/dl (12.0-16.0); Imm Gran Abs Auto 0.03 X10*3/uL (0.00-0.03); Imm Gran Pct Auto 0.3 % (0.0-0.4); Lymphocytes Absolute Auto 2.5 X10*3/uL (1.2-4.9); Lymphocytes Percent Auto 24.4 % (20-40); Mean Corpuscular HGB Conc 32.7 g/dl (31.0-35.0); Mean Corpuscular Volume 94.9 fL (80.0-98.0); Monocytes Absolute Auto 0.6 X10*3/uL (0.1-1.2); Neutrophils Absolute Auto 6.9 x10*3/uL (2.0-8.3); Neutrophils Percent Auto 68.2 % (45-73); Platelet Count 293 X10*3/uL (160-400); Red Cell Distribution Width 13.2 % (11.0-16.0); White Blood Count 10.2 X10*3/uL (4.8-10.8)
[2023-11-08 16:22] LABS: Estimated Average Glucose 91 mg/dL; Hemoglobin A1c % 4.8 % (<6.0)
[2023-11-08 16:50] LABS: Alanine Aminotransferase 22 U/L (0-31); Albumin Level 4.7 g/dL (3.5-5.0); Alkaline Phosphatase 79 U/L (39-117); Anion Gap 10 (12-20); Aspartate Amino Transferase 15 U/L (5-31); Bilirubin Total 1.1 mg/dL (0.0-1.0); Blood Urea Nitrogen 14 mg/dL (9-16); Calcium 9.7 mg/dL (8.4-10.2); Carbon Dioxide 28 mmol/L (22-29); Chloride 104 mmol/L (96-108); Cholesterol 238 mg/dL (<200); Estimated Glomerular Filt Rate > 60; Glucose Random 90 mg/dL (60-115); HDL Cholesterol 35 mg/dL (>40); LDL Cholesterol Calculated 176 mg/dL (<100); Potassium 4.1 mmol/L (3.3-5.1); Sodium 138 mmol/L (135-145); Total Protein 8.6 g/dL (6.5-8.0); Triglycerides 137 mg/dL (<150)
[2023-11-08 16:55] LABS: TSH reflex Free T4 1.37 uIU/mL (0.32-4.0)
[2023-11-08 17:23] LABS: Appearance Urine Turbid; Color Urine Dark Yellow; Glucose Urine UA Negative (Negative); Leukocyte Esterase Urine Moderate (2+) (Negative); Nitrite Urine Positive (Negative); PH 5.5 (5.0-9.0); Specific Gravity - Urine 1.025 (1.005-1.025); UMIC TRIGGER UA YES; Urine Blood Negative (Negative); Urine Ketones Trace mg/dL (Negative); Urine Protein Trace mg/dL (Neg-Trace)
[2023-11-08 17:46] LABS: Bacteria Urine 4+ (None Seen); Calcium Oxalate Crystals Urine Present; Hyaline Casts Urine 0-2 /LPF (0-2); RBC Urine 0-2 /HPF (0-2); WBC Urine 21-50 /HPF (0-5)
[2023-11-08 19:14] LABS: Reflex LDLD? No
[2023-11-09 04:08] LABS: Syphilis Screen Nonreactive (Nonreactive)
[2023-11-09 04:14] LABS: Hepatitis A Antibody IgG Nonreactive (Nonreactive); ~Hepatitis A Antibody IgG 0.61 S/CO (0.00-0.99)
[2023-11-09 04:23] LABS: HBS Num1 7.56 mIU/mL (0-7.99); HBc Num1 0.07 S/CO (0.00-0.79); HBsAGNum1 0.33 S/CO (0.00-0.99); HIV AB/AG Nonreactive (Nonreactive); HIV Num 1 0.05 S/CO (0.00-0.99); Hepatitis B Core Antibody Nonreactive (Nonreactive); Hepatitis B Surface Antigen Negative (Negative); ~HepC Num1 0.07 S/CO (0.00-0.79); ~Hepatitis B Surface Antibody NONREACTIVE (Nonreactive); ~Hepatitis C Antibody Nonreactive (Nonreactive)
[2023-11-09 11:18] LABS: Prolactin 2.9 ng/mL
== END 2023-11-08 14:30 | disposition home or self-care (01) ==
LOC: HO.HHCL 14:29
PROVIDERS: Visit Provider Family Medicine
DX: Z11.3 Encounter for screening for infections with a predominantly sexual mode of transmission (principal); Z11.4 Encounter for screening for human immunodeficiency virus [HIV]; K76.0 Fatty (change of) liver, not elsewhere classified; N64.52 Nipple discharge; R82.90 Unspecified abnormal findings in urine
CPT/HCPCS: 36415; 80053; 80061; 81001; 83036; 84146; 84443; 85025; 86704; 86706; 86708; 86780; 86803; 87340; 87389

== ENCOUNTER 2024-06-08 11:48 | Outpatient (REF) | payer MEDICAID, SELFPAY ==
[2024-06-08 13:30] LABS: Estimated Average Glucose 91 mg/dL; Hemoglobin A1C 107.6977 umol/L; Hemoglobin A1c % 4.8 % (<6.0); Total Hemoglobin (HGBA1C) 3668.8823 umol/L
[2024-06-08 14:16] LABS: Alanine Aminotransferase 30 U/L (0-31); Albumin Level 3.9 g/dL (3.5-5.0); Alkaline Phosphatase 77 U/L (39-117); Anion Gap 11 (12-20); Aspartate Amino Transferase 20 U/L (5-31); Bilirubin Total 0.3 mg/dL (0.0-1.0); Blood Urea Nitrogen 10 mg/dL (9-16); Carbon Dioxide 28 mmol/L (22-29); Chloride 106 mmol/L (96-108); Cholesterol 151 mg/dL (<200); Estimated Glomerular Filt Rate > 60; Glucose Random 91 mg/dL (60-115); HDL Cholesterol 42 mg/dL (>40); LDL Cholesterol Calculated 81 mg/dL (<100); Potassium 3.7 mmol/L (3.3-5.1); Sodium 141 mmol/L (135-145); Total Protein 6.8 g/dL (6.5-8.0); Triglycerides 140 mg/dL (<150)
[2024-06-08 14:45] LABS: Reflex LDLD? No
== END 2024-06-08 11:49 | disposition home or self-care (01) ==
LOC: HO.HHCL 11:48
PROVIDERS: Visit Provider Family Medicine
DX: R55 Syncope and collapse (principal)
CPT/HCPCS: 36415; 80053; 80061; 83036; 84443

== ENCOUNTER 2024-06-19 13:35 | Outpatient (REF) | payer MEDICAID, SELFPAY | END 2024-06-19 13:36 | disposition home or self-care (01) | LOC: HO.CT 13:35 | PROVIDERS: PCP Family Medicine; Visit Provider Student in an Organized Health Care Education/Training Program | DX: Z13.89 Encounter for screening for other disorder (principal) ==

== ENCOUNTER 2024-12-19 12:24 | Outpatient (REF) | payer MEDICAID, SELFPAY ==
[2024-12-19 13:34] LABS: MANUAL DIFF FLAG NO
--- OUTSIDE RECORDS SUMMARY | 2024-12-19 13:48 | XMS_ITS | Encounter Summary ---
Author Organization [employer] Address [address] [place] [address] 7 [place] [address] Care Team Providers Care Barge Hand Name Role Phone Kimmy Drake MD Primary Care Provider [phone] Reason for Visit * Reason Comments Med Change Request Encounter Details Date Type Department Care Team ([facility] Contact Info) Description 02/09/2023 Refill [facility] [address] [place], [place] [phone] Kimmy Drake MD [address] [place] [address] Gastroesophageal reflux disease, unspecified whether esophagitis present Social History Tobacco Use Types Packs/Day Years Used Date Smoking Tobacco: Former Cigarettes Q uit: 10/21/2020 Passive Smoke Exposure: Past Smokeless Tobacco: Never Comments Unknown Sex and Gender Information Value Date Recorded Sex Assigned at Female 05/18/2022 10:20 AM EDT Legal Sex Female 10:20 AM EDT Gender Identity Female 05/18/2022 10:20 AM EDT Sexual Orientation Straight 05/18/2022 10 :20 AM EDT documented as of this encounter Plan of Treatment Not on file documented as of this encounter Visit Diagnoses Diagnosis Gastroesophageal reflux disease, unspecified whether esophagitis present documented in this encounter Additional Health Concerns Assessment Noted Time PHQ-9 Depression Total Score: 20 023 10:35 AM EDT documented as of this encounter Care Teams Barge Hand Relationship Specialty Start Date End Date Kimmy Drake MD [address] [place], [place] [phone] PCP - General Family Medicine 02/05/22 documented as of this encounter
[2024-12-19 13:57] LABS: Basophils Percent Auto 0.5 % (0-2); Eosinophils Absolute Auto 0.1 X10*3/uL (0.0-0.4); Eosinophils Percent Auto 1.8 % (0-4); Hematocrit 41.9 % (37.0-47.0); Hemoglobin 13.9 g/dl (12.0-16.0); Imm Gran Abs Auto 0.03 X10*3/uL (0.00-0.03); Imm Gran Pct Auto 0.5 % (0.0-0.4); Lymphocytes Absolute Auto 2.1 X10*3/uL (1.2-4.9); Lymphocytes Percent Auto 31.4 % (20-40); Mean Corpuscular HGB Conc 33.2 g/dl (31.0-35.0); Mean Corpuscular Volume 93.5 fL (80.0-98.0); Mean Platelet Volume 9.6 fL (9.4-12.3); Monocytes Absolute Auto 0.5 X10*3/uL (0.1-1.2); Monocytes Percent Auto 8.2 % (2-11); Neutrophils Absolute Auto 3.8 x10*3/uL (2.0-8.3); Neutrophils Percent Auto 57.6 % (45-73); Platelet Count 250 X10*3/uL (160-400); Red Blood Count 4.48 X10*6/uL (4.20-5.50); Red Cell Distribution Width 12.7 % (11.0-16.0); White Blood Count 6.6 X10*3/uL (4.8-10.8)
[2024-12-19 14:29] LABS: Estimated Average Glucose 94 mg/dL; Hemoglobin A1c % 4.9 % (<6.0)
[2024-12-19 17:39] LABS: Alanine Aminotransferase 40 U/L (0-31); Albumin Level 4.3 g/dL (3.5-5.0); Alkaline Phosphatase 65 U/L (39-117); Anion Gap 9 (12-20); Aspartate Amino Transferase 29 U/L (5-31); Bilirubin Total 0.5 mg/dL (0.0-1.0); Blood Urea Nitrogen 12 mg/dL (9-16); Carbon Dioxide 30 mmol/L (22-29); Chloride 106 mmol/L (96-108); Cholesterol 196 mg/dL (<200); Estimated Glomerular Filt Rate > 60; Glucose Random 86 mg/dL (60-115); HDL Cholesterol 45 mg/dL (>40); LDL Cholesterol Calculated 118 mg/dL (<100); Potassium 4.5 mmol/L (3.3-5.1); Sodium 140 mmol/L (135-145); Total Protein 7.3 g/dL (6.5-8.0); Triglycerides 169 mg/dL (<150)
[2024-12-19 17:55] LABS: TSH reflex Free T4 1.31 uIU/mL (0.32-4.0)
[2024-12-19 18:24] LABS: Reflex LDLD? No
[2024-12-21 04:12] LABS: Syphilis Screen Nonreactive (Nonreactive)
[2024-12-21 04:33] LABS: HBsAGNum1 0.41 S/CO (0.00-0.99); HIV AB/AG Nonreactive (Nonreactive); HIV Num 1 0.06 S/CO (0.00-0.99); Hepatitis B Surface Antigen Negative (Negative); ~Hepatitis C Antibody Nonreactive (Nonreactive)
== END 2024-12-19 12:25 | disposition home or self-care (01) ==
LOC: HO.HHCL 12:24
PROVIDERS: Visit Provider Family Medicine
DX: K76.0 Fatty (change of) liver, not elsewhere classified (principal); Z11.3 Encounter for screening for infections with a predominantly sexual mode of transmission; E66.812 Obesity, class 2; E66.01 Morbid (severe) obesity due to excess calories; Z68.36 Body mass index [BMI] 36.0-36.9, adult; R74.01 Elevation of levels of liver transaminase levels
CPT/HCPCS: 36415; 80053; 80061; 83036; 84443; 85025; 86780; 86803; 87340; 87389

== ENCOUNTER 2025-04-03 09:04 | Outpatient (REF) | payer MEDICAID, SELFPAY ==
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
--- NOTE | 2025-04-03 09:07 | EMG_ITS ---
Chief complaint: Left hand numbness in ulnar region Reason for referral: Evaluate for Ulnar neuropathy, CTS Referred by: Miranda Drake MD Procedure done: Left upper extremity NCS and EMG Left median and ulnar motor and sensory studies were performed left radial sensory and median and lateral antecubital brachial sensory studies were performed. There was mild slowing of left ulnar motor unit potential across elbow. Corresponding to that decreased recruitment was noted in 1st dorsal interosseous. Impression: Mild left ulnar nerve slowing across cubital tunnel MTDD
--- OUTSIDE RECORDS SUMMARY | 2025-04-03 11:22 | XMS_ITS | Encounter Summary ---
Author Organization [employer] [facility] Address [address] [facility] [address] [place] [address] Care Team Providers Care Health Occupations Instructor Name Role Phone Kimmy Drake MD Primary Care Provider [phone] Rosalio Whitfield RN Unavailable [phone] Mary Alice Victor Unavailable Reason for Visit * Reason Comments Med Refill Encounter Details Date Type Department Care Team (Late Contact Info) Description 02/10/2023 Refill [facility] MEDICINE [address] [place], [place] [phone] Kimmy Drake MD [address] [place], [place] [phone] Gastroesophageal reflux disease, unspecified whether esophagitis present [...] as of this encounter Plan of Treatment Upcoming Encounters Date Type Department Care Team (Late Contact Info) Description 04/09/2025 3:30 PM EDT Office Visit [facility] MEDICINE [address] [place], [place] [phone] Kimmy Drake MD [address] [place], [place] [phone] 05/22/2025 10:30 AM EST Office Visit [facility] MEDICINE [address] [place] [address] Kimmy Drake MD [address] [place] [address] 06/21/2025 10:30 AM EST Office Visit [facility] OPTOMETRY [address] [place] [address] Yolie Zarate, OD [address] [place] [address] documented as of this encounter Visit Diagnoses Diagnosis Gastroesophageal reflux disease, unspecified whether esophagitis present documented in this encounter Additional Health Concerns Assessment Noted Time PHQ-9 Depression Total Score: 20 023 10:35 AM EDT documented as of this encounter Care Teams Health Occupations Instructor Relationship Specialty Start Date End Date Kimmy Drake MD [address] [place] [address] PCP - General Family Medicine 02/05/22 Rosalio Whitfield RN [address] [place] [address] Registered Nurse Family Medicine 03/29/25 Mary Alice Victor 03/29/25 documented as of this encounter
--- OUTSIDE RECORDS SUMMARY | 2025-04-03 11:22 | XMS_ITS | Encounter Summary ---
Author Organization [employer] Address [address] [facility] 7t [place] [address] Care Team Providers Care Mass Spectroscopist Name Role Phone Kimmy Drake MD Primary Care Provider [phone] Rosalio Whitfield RN Unavailable [phone] Mary Alice Victor Unavailable Reason for Visit * Reason Comments Care Management [facility]- initial assess ment/ enrollment Encounter Details Date Type Department Care Team (Late st Contact Info) Description 03/30/2025 Patient Outreach [facility]INE [address] [place], [place] [phone] Kimmy Drake MD [address] [place], [place] [phone] Care Management ([facility]- initial assessment/ enrollment) Social History Tobacco Use Types Packs/Day Years Used Date Smoking Tobacco: Every Day Cigarettes Last attempted to quit: 10/21/2020 Passive Smoke Exposure: Current Smokeless Tobacco: Never Alcohol Use Standard Drinks/Week Comments Never 0 (1 standard drink = 0.6 oz pur e alcohol) Depression Answer Date Recorded Patient Health Questionnaire-9 Score 10 12/21/2024 Patient Health Questionnaire-9 Score 10 12/21/2024 Last PHQ-9: Questionnaire Data Not on file 0 12/21/2024 Housing Stability Answer Date Recorded What is your housing situation today? I have loren arceo 12/12/[address] you li ve. Do you have problems with any of the following? None of the above 12/12/2024 Food Insecurity Answer Date Recorded Within the past 12 months, y ou worried that your food would run out before you got money to buy more: Sometimes True 2024 Within the past 12 months,th e food you bought just didn't last and you didn't have enough money to get more: Sometimes True 03/30/2025 Transportation Answer Date Recorded In the past 12 months, has l ack of transportation kept you from medical appts, meetings, work or from getting things needed for daily living? Yes, it has kept me from medical appointments or getting medications. 03/30/2025 Utilities Answer Date Recorded In the past 12 months, has t he [employer], gas, oil or water [employer] threatened to shut off services in your home? No 03/30/2025 Depression Answer Date Recorded Patient Health Questionnaire-2 Score 3 12/21/2024 Internet Access Answer Date Recorded Internet Access Q1 Yes 12/12/2024 Internet Access Q2 Not on file 12/12/2024 Comments No Sex and Gender Information Value Date Recorded Sex Assigned at Female 05/18/2022 10:20 AM EDT Legal Sex Female 10:20 AM EDT Gender Identity Female 05/18/2022 10:20 AM EDT Sexual Orientation Straight 05/18/2022 10 :20 AM EDT documented as of this encounter Progress Notes * Rosalio Whitfield RN - 03/30/2025 1:54 PM EDT CM Rosalio Whitfield RN placed outbound call to patient for agreed upon time for initial assessment for enrollment into Adult Care Management Program. Patient's name, , and address were verified. Mara is a 35 year old female with Hx of asthma, chronic back pain, mood disorder, GERD, nephrolithiasis, adenomyosis of uterus, chronic pain of both knees, PTSD, allergic rhinitis, fibromyalgia, MASLD, obesity, numbness and tingling on right hand, chronic neck pain, tobacco dependence, moderate major depression, NINA, financial insecurity, housing insecurity, bipolar affective disorder, and numbness and tingling in left hand. Patient states she was seen at [facility] ED for eval of chest pain. She states she completed an EKG which resulted normal. Per patient, provider wanted to give her tylenol and ibuprofen to help treat pain. She states she is allergic to those medications so she left the ED. Patient states she called [facility] to schedule a f/u appointment but never received a call back. Patient states she continues to experience CP intermittently. She states the pain is usually at the center of thechest and reports it is associated with nausea. Patient states the episodes usually last for 30 minor less. Per patient, nothing relieves the pain. She denies CP, SOB, dizziness, blurry vision, or vomiting now. She does report left shoulder pain. Per patient, seen at the [facility] on 03/15. She states the provider was not fully able to assess her as she had limited range of motion at the time due to pain. Per patient, is not scheduled to see OT until 04/20/25. She states she cannot wait until that date to be seen. Per patient, pain is so bad at times that she has suicidal thoughts. She denies SI/HI at this time. Patient states she was previously established with but has not been seenin over a year. She states she would like to re establish care with both a therapist and a psychiatrist. Per patient, was contacted recently by and was emailed paperwork to complete. She states she has difficulty with reading and writing and was not able to complete the paperwork. CM will reach out to office to assist with coordinating care and scheduling an appointment. Patient states she is currently taking duloxetine 30mg-3 to 4 tabs BID and pantoprazole 40mg two tabs daily. She states she is overusing meds as she is in pain. Per patient, notified the provider at the ED and states she will continue to do so as no one is helping her with managing the pain. She does report seeing pain [facility] pain management in the past but states they were also not helpful. Patient reports use of cocaineand states that she has bought percocet off the street. She states she is using these substances because there is nothing else that will relieve her pain. Per patient, last used cocaine x4 days ago. She states she is aware of the risks associated with use of these substances. Per patient, not scheduled to see PCP until 05/22. She is requesting a sooner f/u appt. Next available is 04/09/25. Patient states she can wait until that date. Visit scheduled after consulting with SPENCER Wasserman. KRUT educated patient of [facility] and provided her with hours of operation. She verbalizes understanding andagrees to f/u sooner as needed. Per patient, has an appt scheduled with ENT on 04/02/25 at 10:30am. She also reports being scheduled for an EMG at [facility] on 04/03/25 at 9:30am. Patient requesting PT1. ANTONIO Alfaro will outreach to arrange transportation. Patient agrees. Patient denies any immediateneeds or concerns at this time. Care management program explained and contact information given. Patient verbalizes understanding, and able to repeat back to video game script writer. A follow up call will be placed within 10 days, patient agrees with plan. documented in this encounter Plan of Treatment Upcoming Encounters Date Type Department Care Team ([facility] st Contact Info) Description 04/09/2025 3:30 PM EDT Office Visit [facility] MEDICINE [address] [place] [address] Kimmy Drake MD [address] [place] [address] 05/22/2025 10:30 AM EST Office Visit [facility]INE [address] [place] [address] Kimmy Drake MD [address] [place] [address] 06/21/2025 10:30 AM EST Office Visit [facility] OPTOMETRY [address] [place] [address] Tarka, Yolie, OD [address] [place] [address] documented as of this encounter Visit Diagnoses Not on filedocumented in this encounter Additional Health Concerns Assessment Noted Time PHQ-9 Depression Total Score: 10 12/21/ 025 4:23 PM EDT documented as of this encounter Care Teams Mass Spectroscopist Relationship Specialty Start Date End Date Kimmy Drake MD [address] [place] [address] PCP - General Family Medicine 02/05/22 Rosalio Whitfield RN [address] [place] [address] [place] [address] Registered Nurse Family Medicine 03/29/25 Mary Alice Victor 03/29/25 documented as of this encounter
--- OUTSIDE RECORDS SUMMARY | 2025-04-03 11:22 | XMS_ITS | Encounter Summary ---
Author Organization [employer] Address [address] [facility] 7t [place] [address] Care Team Providers Care Tooth Clerk Name Role Phone Kimmy Drake MD Primary Care Provider [phone] Rosalio Whitfield RN Unavailable [phone] Mary Alice Victor Unavailable Reason for Visit * Reason Onset Date Comments Call request 10/13/2022 Encounter Details Date Type Department Care Team (Late st Contact Info) Description 10/13/2022 Telephone [facility] MEDICINE [address] [place], [place] [phone] Kimmy Drake MD [address] [place], [place] [phone] Call request Social History Tobacco Use Types Packs/Day Years Used Date Smoking Tobacco: Never Passive Smoke Exposure: Never Smokeless Tobacco: Never Comments Unknown Sex and Gender Information Value Date Recorded Sex Assigned at Female 05/18/2022 10:20 AM EDT Legal Sex Female 10:20 AM EDT Gender Identity Female 05/18/2022 10:20 AM EDT Sexual Orientation Straight 05/18/2022 10 :20 AM EDT COVID-19 Exposure Response Date Recorded In the last 10 days, have yo u been in contact with someone who was confirmed or suspected to have Coronavirus/COVID-19? No / Unsure 09/23/2022 8:57 AM EST documented as of this encounter Miscellaneous Notes * Telephone Encounter - Adrienne Hicks Alexandrea - 10/13/2022 1:11 PM EDT Brett Ruiz with [facility] requesting a call regarding pt. Please contact Sara at [phone] documented in this encounter Plan of Treatment Upcoming Encounters Date Type Department Care Team (Late st Contact Info) Description 04/09/2025 3:30 PM EDT Office Visit [facility] MEDICINE [address] [place] [address] Kimmy Drake MD [address] [place] [address] 05/22/2025 10:30 AM EST Office Visit [facility] MED[facility] [address] [place] [address] Kimmy Drake MD [address] [place] [address] 06/21/2025 10:30 AM EST Office Visit [facility] OPTOMETRY [address] [place] [address] Tarka, Yolie, OD [address] [place] [address] documented as of this encounter Visit Diagnoses Not on filedocumented in this encounter Additional Health Concerns Assessment Noted Time PHQ-9 Depression Total Score: 0 08/25/19 23 1:09 PM EST documented as of this encounter Care Teams Tooth Clerk Relationship Specialty Start Date End Date Kimmy Drake MD [address] [place] [address] PCP - General Family Medicine 02/05/22 Rosalio Whitfield RN [address] [place] [address] Registered Nurse Family Medicine 03/29/25 Mary Alice Victor 03/29/25 documented as of this encounter
--- OUTSIDE RECORDS SUMMARY | 2025-04-03 11:22 | XMS_ITS ---
Author Organization [employer] Address [address] [place] [address] 7 [place] [address] Care Team Providers Care Sql Ssrs Ssis Developer Name Role Phone Kimmy Drake MD Primary Care Provider Rosalio Whitfield RN Unavailable [phone] Mary Alice Victor Unavailable CM Complex Status:Enrolled (Active) Start date:03/29/2025 Enrollment date:03/30/2025 Enrollment reason:ADT Feed Overview ADT- [facility] ED 03/28/25 Dx chest pain Case Team Name Relationship Phone Rosalio Whitfield RN(Responsible Staff) Registered Nurse [phone] Continued Care and Services Coordination
--- OUTSIDE RECORDS SUMMARY | 2025-04-03 11:22 | XMS_ITS | Encounter Summary ---
Author Organization [employer] Address [address] [facility] 7t [place] [address] Care Team Providers Care Blogs Manager Name Role Phone Kimmy Drake MD Primary Care Provider [phone] Rosalio Whitfield RN Unavailable [phone] Mary Alice Victor Unavailable Reason for Visit * Reason Comments Care Coordination CM/CHW outreach Encounter Details Date Type Department Care Team (Latest Contact Info) Description 03/29/2025 Patient Outreach [facility] MEDICINE [address] [place], [place] [phone] Kimmy Drake MD [address] [place], [place] [phone] Care Coordination (CM/CHW outreach) Social History Tobacco Use Types Packs/Day Years [...] the past 12 months, has t he electric, gas, oil or water company threatened to shut off services in your [...] as of this encounter Progress Notes * Mary Alice Victor - 03/29/2025 1:53 PM EDT CHW Mary Alice Victor, placed outbound call to patient introducing herself from [facility] CM Department, in regards to offering services. Patient's name and was confirmed. Patient agreesto participate in program. Appt. for initial assessment scheduled for 03/30/25 @ 10AM tele with CM Rosalio Whitfield RN. CHW reinforced direct contact information or CM forany additional questions or concerns and extended clinic hours on Mondays and Wednesdays, and Walk-In Urgent Care Located in [facility] of [facility]. Patient provided with after-hours line for [facility], , which offer night time triage service and option to transfer to animal control supervisor provider if needed. Patient verbalizes understanding, and able to repeat back to proposal lead writer. documented in this encounter Plan of Treatment Upcoming Encounters Date Type Department Care Team (Late st Contact Info) Description 04/09/2025 3:30 PM EDT Office Visit [facility] MEDICINE [address] [place] [address] Kimmy Drake MD [address] [place] [address] 05/22/2025 10:30 AM EST Office Visit [facility] MEDICINE [address] [place] [address] Kimmy Drake MD [address] [place] [address] 06/21/2025 10:30 AM EST Office Visit [facility] OPTOMETRY [address] [place] [address] TarYolie kumari, OD [address] [place] [address] documented as of this encounter Visit Diagnoses Not on filedocumented in this encounter Additional Health Concerns Assessment Noted Time PHQ-9 Depression Total Score: 10 025 4:23 PM EDT documented as of this encounter Care Teams Blogs Manager Relationship Specialty Start Date End Date Kimmy Draek MD [address] [place] [address] PCP - General Family Medicine 02/05/22 Rosalio Whitfield RN [address] [place] [address] Registered Nurse Family Medicine 03/29/25 Mary Alice Victor 03/29/25 documented as of this encounter
--- OUTSIDE RECORDS SUMMARY | 2025-04-03 11:22 | XMS_ITS ---
Author Organization [employer] Address [address] [place] [address] 7t [place] [address] Care Team Providers Care Biometrics Analyst Name Role Phone Kimmy Drake MD Primary Care Provider [phone] Rosalio Whitfield RN Unavailable [phone] Mary Alice Victor Unavailable CHW Complex Status:Enrolled (Active) Start date:03/29/2025 Enrollment date:03/30/2025 Enrollment reason:ADT Feed Overview ADT- [facility] ED 03/28/25 Dx chest pain. Please outreach for enrollment. Case Team Name Relationship Phone Mary Alice Victor(Responsible Staff) [phone] Continued Care and Services Coordination
--- OUTSIDE RECORDS SUMMARY | 2025-04-03 11:22 | XMS_ITS | Encounter Summary ---
Author Organization [employer] Address [address] [facility] 7t [place] [address] Care Team Providers Care Programming Coordinator Name Role Phone Kimmy Drake MD Primary Care Provider [phone] Rosalio Whitfield RN Unavailable [phone] Mary Alice Victor Unavailable Reason for Visit * Reason Onset Date Comments Nurse Triage 03/06/2024 Encounter Details Date Type Department Care Team (Late st Contact Info) Description 03/06/2024 Telephone [facility] MEDICINE [address] [place] [address] Kimmy Drake MD [address] [place], [place] [phone] Nurse Triage Social History Tobacco Use Types Packs/Day Years Used Date Smoking Tobacco: Every Day Cigarettes Last attempted to quit: 10/21/2020 Passive Smoke Exposure: Current Smokeless Tobacco: Never Alcohol Use Standard Drinks/Week Comments Never 0 (1 standard drink = 0.6 oz pur e alcohol) Depression Answer Date Recorded Patient Health Questionnaire-9 Score 9 03/01/2023 Housing Stability Answer Date Recorded What is your housing situation today? I do not have housing (Staying with others, in a hotel, in a correction, living outside on the street, on a beach, in a car, or in a park 10/28/[address] you li ve. Do you have problems with any of the following? None of the above 10/28/2023 Food Insecurity Answer Date Recorded Within the past 12 months, y ou worried that your food would run out before you got money to buy more: Often true 10/28/2023 Within the past 12 months,th e food you bought just didn't last and you didn't have enough money to get more: Often true 05/2024 Transportation Answer Date Recorded In the past 12 months, has l ack of transportation kept you from medical appts, meetings, work or from getting things needed for daily living? No 10/28/2023 Utilities Answer Date Recorded In the past 12 months, has t he electric, gas, oil or water company threatened to shut off services in your home? No 10/28/2023 Depression Answer Date Recorded Patient Health Questionnaire-2 Score 3 03/01/2023 Comments Unknown Sex and Gender Information Value Date Recorded Sex Assigned at Female 05/18/2022 10:20 AM EDT Legal Sex Female 10:20 AM EDT Gender Identity Female 05/18/2022 10:20 AM EDT Sexual Orientation Straight 05/18/2022 10 :20 AM EDT documented as of this encounter Miscellaneous Notes * Telephone Encounter - Mone Willis RN - 03/06/2024 3:46 PM EDT Triage call Pt reports at about 5AM Wednesday morning, Pt was smoking and got up to go to the bathroom and before reaching the bathroom, stopped at the door and fell face down hitting a tray table with Pt face. Pt denies any bruising, reports that over right eye brow it is painful to touch, left side of face is reddened. Pt reports whole right lower back and right side is hurting. Pt reports very tender to touch, hard to bend and is ambulating with at limp. Pt doesn't remember what happened but,boyfriend present saw the episode. Pt is advised to seek evaluation at ED but, declines reports, i want an appointment , I have children I don't want to wait for ever. , tell Dr. Drake to call murphy e, she knows how I am and she can tell me what I need . Pt again is advised to seek evaluation in closest Ed, Pt reports, I go there , they tell me there is nothing wrong and when i see Dr. Beatty find out what is really wrong . Pt reports , I will go to the urgent care at [facility] Pt is advised of the benefit of going to the ED. Pt reports will be coming to [facility]. Triage ended. Insurance is verified as active. Protocol Used: Falls and Falling (Adult) Protocol-Based Disposition: Go to ED Now Positive Triage Question: * Injury (or injuries) that need emergency care * All higher-acuity triage questions were negative Care Advice Discussed: * Reasons To Call Back - You have more questions * Telephone Encounter - Khalif Victor - 03/06/2024 3:06 PM EDT Symptoms: Fall, Back Injury Outcome: Transfer to a nurse or provider NOW! Reason: Was knocked out (was unconscious) documented in this encounter Plan of Treatment Upcoming Encounters Date Type Department Care Team (Late st Contact Info) Description 04/09/2025 3:30 PM EDT Office Visit [facility] MEDICINE [address] [place] [address] Kimmy Drake MD [address] [place] [address] 05/22/2025 10:30 AM EST Office Visit [facility] MEDICINE [address] [place] [address] Kimmy Drake MD [address] [place] [address] 06/21/2025 10:30 AM EST Office Visit [facility] OPTOMETRY [address] [place] [address] TarkaYolie, OD [address] [place] [address] documented as of this encounter Visit Diagnoses Not on filedocumented in this encounter Additional Health Concerns Assessment Noted Time PHQ-9 Depression Total Score: 9 03/01/20 23 12:59 PM EDT documented as of this encounter Care Teams Programming Coordinator Relationship Specialty Start Date End Date Kimmy Drake MD [address] [place] [address] PCP - General Family Medicine 02/05/22 Rosalio Whitfield RN [address] [place] [address] RUBI Coles [address] Registered Nurse Family Medicine 03/29/25 Mary Alice Victor 03/29/25 documented as of this encounter
--- OUTSIDE RECORDS SUMMARY | 2025-04-03 11:22 | XMS_ITS | Encounter Summary ---
Author Organization [employer] Address [address] [facility] 7t [place] [address] Care Team Providers Care Extension Service Agent Name Role Phone Kimmy Drake MD Primary Care Provider [phone] Rosalio Whitfield RN Unavailable [phone] Mary Alice Victor Unavailable Reason for Visit * Reason Comments Care Management C3- chart review Encounter Details Date Type Department Care Team (Late st Contact Info) Description 03/29/[address] [facility] MEDICINE [address] [place], [place] [phone] Kimmy Drake MD [address] [place], [place] [phone] Care Management (C3CM- chart review) Social History Tobacco Use Types Packs/Day Years [...] Progress Notes * Rosalio Whitfield RN - 03/29/2025 8:07 AM EDT KURT Whitfield RN, performed chart review, in anticipation of initial assessment with patient, as patient has stratified for C3 Adult Complex Care through the ADT feed. History significant for asthma, chronic back pain, GERD, mood disorder, nephrolithiasis, adenomyosis of uterus, chronic pain ofboth knees, PTSD, allergic rhinitis, fibromyalgia, MASLD, obesity, numbness and tingling on right hand, chronic neck pain, tobacco dependence, moderate major depression, NINA, financial insecurity, housing insecurity, bipolar affective disorder, and numbness and tingling in left hand. Specialists include OT, [facility] Optometry, ENT, Behavioral Health, Obstetrics, Urology, and Podiatry. ED visits withinthe last 12 months include [facility] ED 03/28/25 Dx chest pain. Last appointment in PCP office on 03/09/25.Next appointment scheduled for 05/22/25 at 10:30am for follow up with PCP. documented in this encounter Plan of Treatment Upcoming Encounters Date Type Department Care Team (Late st Contact Info) Description 04/09/2025 3:30 PM EDT Office Visit [facility] MEDICINE [address] [place] [address] Kimmy Drake MD [address] [place] [address] 05/22/2025 10:30 AM EST Office Visit [facility] MEDICINE [address] [place] [address] Kimmy Drake MD [address] [place] [address] 06/21/2025 10:30 AM EST Office Visit [facility] OPTOMETRY [address] [place] [address] TarkaYolie, OD [address] [place] [address] documented as of this encounter Visit Diagnoses Not on filedocumented in this encounter Additional Health Concerns Assessment Noted Time PHQ-9 Depression Total Score: 10 12/21/ 025 4:23 PM EDT documented as of this encounter Care Teams Extension Service Agent Relationship Specialty Start Date End Date Kimmy Drake MD [address] [place] [address] PCP - General Family Medicine 02/05/22 Rosalio Whitfield RN [address] [place] [phone] Registered Nurse Family Medicine 03/29/25 Mary Alice Victor 03/29/25 documented as of this encounter
--- OUTSIDE RECORDS SUMMARY | 2025-04-03 11:22 | XMS_ITS | Encounter Summary ---
Author Organization [employer] [facility] Address [address] [facility] [address] [place] [address] Care Team Providers Care Household Chores Name Role Phone Kimmy Drake MD Primary Care Provider [phone] Rosalio Whitfield RN Unavailable [phone] Mary Alice Victor Unavailable Reason for Visit * Reason Comments Med Change Request Encounter Details Date Type Department Care Team (Late Contact Info) Description 02/09/2023 Refill [facility] MEDICINE [address] [place], [place] [phone] Kimmy Drake MD [address] [place], [place] [phone] Gastroesophageal reflux disease, unspecified whether esophagitis present [...] Description 04/09/2025 3:30 PM EDT Office Visit [facility] MEDICINE [address] [place], [place] [phone] Kimmy Drake MD [address] [place], [place] [phone] 05/22/2025 10:30 AM EST Office Visit [facility] MEDICINE [address] [place] [address] Kimmy Drake MD [address] [place] [address] 06/21/2025 10:30 AM EST Office Visit [facility] OPTOMETRY [address] [place] [address] Yolie Zarate, OD [address] [place] [address] documented as of this encounter Visit Diagnoses Diagnosis Gastroesophageal reflux disease, unspecified whether esophagitis present documented in this encounter Additional Health Concerns Assessment Noted Time PHQ-9 Depression Total Score: 20 023 10:35 AM EDT documented as of this encounter Care Teams Household Chores Relationship Specialty Start Date End Date Kimmy Drake MD [address] [place] [address] PCP - General Family Medicine 02/05/22 Rosalio Whitfield RN [address] [place] [address] Registered Nurse Family Medicine 03/29/25 Mary Alice Victor 03/29/25 documented as of this encounter
--- OUTSIDE RECORDS SUMMARY | 2025-04-03 11:22 | XMS_ITS | Encounter Summary ---
Author Organization [employer] [facility] Address 75 [facility] 7t [place] [address] Care Team Providers Care Outfitter Cabin Name Role Phone Kimmy Drake MD Primary Care Provider [phone] Rosalio Whitfield RN Unavailable [phone] Mary Alice Victor Unavailable Reason for Visit * Reason Comments Med Refill Encounter Details Date Type Department Care Team ([facility] Contact Info) Description 01/31/2023 Refill [facility] MEDICINE [address] [place] [address] Kimmy Drake MD [address] [place], [place] [phone] Gastroesophageal reflux disease, unspecified whether esophagitis present [...] suspected to have Coronavirus/COVID-19? No / Unsure 01/01/2023 10:55 AM EDT documented as of this encounter Plan of Treatment Upcoming Encounters Date Type Department Care Team (Late Contact Info) Description 04/09/2025 3:30 PM EDT Office Visit [facility] MEDICINE [address] [place] [address] Kimmy Drake MD [address] [place] [address] 05/22/2025 10:30 AM EST Office Visit [facility] MEDICINE [address] [place] [address] Kimmy Drake MD [address] [place] 06/21/2025 10:30 AM EST Office Visit [facility] OPTOMETRY [address] [place] [address] Yolie Zarate, OD [address] [place] [address] documented as of this encounter Visit Diagnoses Diagnosis Gastroesophageal reflux disease, unspecified whether esophagitis present documented in this encounter Additional Health Concerns Assessment Noted Time PHQ-9 Depression Total Score: 20 023 10:35 AM EDT documented as of this encounter Care Teams Outfitter Cabin Relationship Specialty Start Date End Date Kimmy Drake MD [address] [place] [address] PCP - General Family Medicine 02/05/22 Rosalio Whitfield RN [address] [place] [address] Registered Nurse Family Medicine 03/29/25 Mary Alice Victor 03/29/25 documented as of this encounter
--- OUTSIDE RECORDS SUMMARY | 2025-04-03 11:22 | XMS_ITS | Encounter Summary ---
Author Organization [employer] Address [address] [facility] 7t [place] [address] Care Team Providers Care Instructional Paraprofessional Name Role Phone Kimmy Drake MD Primary Care Provider [phone] Rosalio Whitfield RN Unavailable [phone] Mary Alice Victor Unavailable Encounter Details Date Type Department Care Team (Late st Contact Info) Description 03/30/2025 Plan of Care Documentation [facility] MEDICINE [address] [place] [address] Social History Tobacco Use Types Packs/Day Years [...] Description 04/09/2025 3:30 PM EDT Office Visit [facility] MEDICINE [address] [place] [address] Kimmy Drake MD [address] [place] [address] 05/22/2025 10:30 AM EST Office Visit [facility] MED[facility]INE [address] [place] [address] Kimmy Drake MD [address] [place] [address] 06/21/2025 10:30 AM EST Office Visit [facility] OPTOMETRY [address] [place] [address] TarkaYolie, OD [address] [place] [address] documented as of this encounter Visit Diagnoses Not on filedocumented in this encounter Additional Health Concerns Assessment Noted Time PHQ-9 Depression Total Score: 10 025 4:23 PM EDT documented as of this encounter Care Teams Instructional Paraprofessional Relationship Specialty Start Date End Date Kimmy Drake MD [address] [place] [phone] PCP - General Family Medicine 02/05/22 Rosalio Whitfield RN [address] [place] [address] Registered Nurse Family Medicine 03/29/25 Mary Alice Victor 03/29/25 documented as of this encounter
--- OUTSIDE RECORDS SUMMARY | 2025-04-03 11:22 | XMS_ITS | Encounter Summary ---
Author Organization [employer] Address [address] [facility] 7t [place] [address] Care Team Providers Care Chute Boss Name Role Phone Kimmy Drake MD Primary Care Provider [phone] Rosalio Whitfield RN Unavailable [phone] Mary Alice Victor Unavailable Encounter Details Date Type Department Care Team (Late st Contact Info) Description 06/21/2024 Orders Only [place] [facility] [address] [place] [address] Provider, MD Joy Social History Tobacco Use Types Packs/Day Years [...] with others, in a hotel, in a fpc, living outside on the street, on a [...] Description 04/09/2025 3:30 PM EDT Office Visit [facility] MEDICINE [address] [place] [address] Kimmy Drake MD [address] [place] [address] 05/22/2025 10:30 AM EST Office Visit [facility] MEDICINE [address] [place] [address] Kimmy Drake MD [address] [place] [address] 06/21/2025 10:30 AM EST Office Visit [facility] OPTOMETRY [address] [place] [address] TarkaYolie, OD [address] [place] [address] documented as of this encounter Procedures Procedure Name Priority Date/Time Associated Diagnosis Comments CT ABD/PELVIS W/ IV CONTRAST ONLY Routine 06/20/2024 3:13 PM EST documented in this encounter Results * CT ABD/PELVIS W/ IV CONTRAST ONLY (06/20/2024 3:13 PM EST) Anatomical Region Laterality Modality Body, Pelvis, Abdomen Computed T omography Historical Provider MD IMG CT PROCEDURES Final R esult documented in this encounter Visit Diagnoses Not on filedocumented in this encounter Additional Health Concerns Assessment Noted Time PHQ-9 Depression Total Score: 9 03/01/20 23 12:59 PM EDT documented as of this encounter Care Teams Chute Boss Relationship Specialty Start Date End Date Kimmy Drake MD [address] [place] [address] PCP - General Family Medicine 02/05/22 Rosalio Whitfield, SPENCER [address] [place] [address] Registered Nurse Family Medicine 03/29/25 Mary Alice Victor 03/29/25 documented as of this encounter
--- OUTSIDE RECORDS SUMMARY | 2025-04-03 11:22 | XMS_ITS | Clinical Summary ---
Author Organization [facility] Address [address] [place] [address] Phone Care Team Providers Care Senior Product Development Manager Name Role Phone Kimmy Drake MD Primary Care Provider [phone] Allergies Active Allergy Reactions Criticality Noted Date Comments Acetaminophen Rash Low 08/14/2022 Amoxicillin Rash Low 01/09/2021 Docusate Sodium Headache 03/19/2020 Folic Acid Rash Low 10/11/2010 Ibuprofen 03/01/2024 Iron Itching,Rash High 10/11/2010 Lamotrigine Rash Medium 03/01/2023 Milk 01/04/2012 Other reaction(s): Stomach Pain Naproxen Hives High 02/05/2023 Promethazine Rash 03/19/2020 Sulfamethoxazole Hives High 02/05/2023 Trimethoprim Hives High 02/05/2023 Medications No known medications Encounters Date Type Department Care Team Description 03/28/2025 6:07 PM EDT - 03/28/2025 10:42 PM EDT Emergency [facility] Emergency [address] [place] [address] Discharge Disposition: Home or Self Care from Last 3 Months Surgical History Surgery Date Site/Laterality Comments OTHER SURGICAL HISTORY 2009 PROCEDURE: ND CYSTO W/INSERT URETERAL STENT; COMMENT: kidney stent placed OTHER SURGICAL HISTORY 12/05/2018 Left PROCEDURE: ND CYSTO W/INSERT URETERAL STENT; COMMENT: Ureteral stent placement TUBAL LIGATION 12/2015 PROCEDURE: HISTORICAL TUBAL LIGATION OTHER SURGICAL HISTORY 04/28/2012 PROCEDURE: ND LITHOLAPAXY SMPL/SM <2.5 CM; COMMENT: & removal of retained stent, Dr Albarran KIDNEY STONE SURGERY PROCEDURE: ND NEPHROLITHOTOMY REMOVAL CALCULUS; COMMENT: early 2019 Dr. Albarran Medical History Medical History Date Comments Asthma DX:Asthma Kidney stones DX:Kidney stones PCOS (polycystic ovarian syndrome) 03/19/2020 DX:PCOS (polycystic ovarian syndrome) PTSD (post-traumatic stress disorder) 03/19/2020 DX:PTSD (post-traumatic stress disorder) ADD (attention deficit disorder) 03/19/2020 DX:ADD (attention deficit disorder) Depression DX:Depression NINA (generalized anxiety disorder) 03/19/2020 DX:NINA (generalized anxiety disorder) Chronic pain disorder DX:Chronic pain disorder Migraines DX:Migraines; CO MMENT: with Aura Liver problem Family History Medical History Relation Name Comments Breast cancer Maternal Grandmother Breast cancer Mother Breast cancer Paternal Grandmother Breast cancer Sister Other cancer Sister unknown Ovarian cancer Neg Hx Uterine cancer Neg Hx Relation Name Status Comments Brother 1 Alive asthma Brother 2 Alive asthma Brother 3 Alive depression Father Alive diabetes, htn, heart disease Maternal Grandfather Alive Maternal Grandmother Mother Alive brain tumor, br east cancer age 36, asthma, depression Paternal Grandfather Paternal Grandmother Sister Alive asthma Social History Tobacco Use Types Packs/Day Years Used Date Smoking Tobacco: Every Day Cigarettes Smokeless Tobacco: Never Tobacco Cessation:Ready to Q uit: Not Asked; Counseling Given: Not Answered Alcohol Use Standard Drinks/Week Comments Not Currently 0 (1 standard drink = 0.6 oz pur e alcohol) Comments Unknown Sex and Gender Information Value Date Recorded Sex Assigned at Not on file Legal Sex Female 3:10 PM EST Gender Identity Not on file Sexual Orientation Not on file Obstetrics History Para Term AB IAB SAB Ectopic Multiple Livin g Live Births 1 Date Outcome GA Total Labor Labor/2nd/3rd Weight Sex Type Anes PTL Carmelita A1 A5 Name Clin Last Filed Vital Signs Vital Sign Reading [...] Mass Index 38.61 03/28/2025 6:22 PM EDT Plan of Treatment Health Maintenance Due Date Last Done Comments HPV Vaccines (2 - 3-dose series) 06/26/2011 05/29/2011 Cholesterol Screening (Lipid Panel) 06/17/2022 Social Influencers of Health Screening 06/17/2022 Cervical Cancer Screening: Pap Smear 01/10/2024 01/09/2021 Depression Screening 07/19/2024 Hepatitis B Vaccines (2 of 3 - 19+ 3-dose series) 01/16/2025 12/19/2024 COVID-19 Vaccine (2024- season) 2025 11/08/2023, 03/13/2022, 01/13/2021, Additional history exists Influenza Vaccine (#1) 2025 , 05/11/2014, 04/23/2011, Additional history exists DTaP,Tdap,and Td Vaccines (6 - Td or Tdap) 12/17/2029 12/18/2019, 12/10/2015, 03/13/2014, Additional history exists Pneumococcal Vaccine: Pediatrics (0 to 5 Years) and At-Risk Patients (6 to 49 Years) Completed 11/08/2023, 11/18/2020, 01/04/2012 HIV Screening Completed 12/19/2024, 11/08/2023 Hepatitis A Vaccines Completed 12/19/2024, 11/08/19 Hepatitis C Screening Completed 12/19/2024, 024 HIB Vaccines Aged Out No longer eligi ble based on patient's age to complete this topic IPV Vaccines Aged Out No longer eligi ble based on patient's age to complete this topic MMR Vaccines Aged Out No longer eligi ble based on patient's age to complete this topic Meningococcal ACWY Vaccine Aged Out N o longer eligible based on patient's age to complete this topic Meningococcal B Vaccine Aged Out No l onger eligible based on patient's age to complete this topic RSV Immunization Patients Under 20 months Aged Out No longer eligible based on patient's age to complete this topic Varicella Vaccines Aged Out No longer eligible based on patient's age to complete this topic Procedures Procedure Name Priority Date/Time Associated Diagnosis Comments ECG ANNOTATED 03/29/2025 ECG 12-LEAD STAT 03/28/2025 6:17 PM EDT PAP SMEAR Routine 01/09/2021 from Last 3 Months or Most Recently Relevant to Health Maintenance Results * ECG-Annotated (03/29/2025) Provider Onbase MD ECG ORDERABLES Final Result * ECG 12 lead (03/28/2025 6:17 PM EDT) Ventricular Rate ECG 98 BPM GEMUSE Atrial Rate 98 BPM GEMUSE P-R Interval 148 ms GEMUSE QRS Duration 96 ms GEMUSE Q-T Interval 336 ms GEMUSE QTc 428 ms GEMUSE P Wave [place] 40 degrees GEMUSE R [place] 62 degrees GEMUSE T [place] 33 degrees GEMUSE ECG Interpretation Normal sinus rhythm No previous ECGs available Confirmed by FLORENCE BISWAS ([id number]) on 03/28/2025 8:13:16 PM GEMUSE 03/28/2025 6:17 PM EDT 03/28/2025 8:13 PM EDT Kyler LINDER ECG ORDERABLES Final Res ult Performing Organization Address City/State/[facility] Co de Phone Number GEMUSE * Pap smear (01/09/2021) 01/09/2021 Narrative HISTORICAL TESTING LAB RESULTING AGENCY - 01/13/2021 1:10 PM EDT [id number] THINPREP PAP, IMAGED: NEGATIVE FOR SQUAMOUS INTRAEPITHELIAL LESION AND MALIGNANCY . CLUE CELLS ARE PRESENT. ANTONINO GIRALDO(ASCP) (CASE ELECTRONICALLY SIGNED 01 13 2021) ADEQUACY: SATISFACTORY ENDOCERVICAL/TRANSFORMATION ZONE COMPONENT PRESENT. SOURCE: THINPREP PAP HPV IF ASCUS, CERVICAL, IMAGED CLINICAL INFORMATION: HPV IF DIAGNOSIS OF ASCUS. HORMONES, PAP HX NEG, Z12.4 Mary Alice Quick CNM LAB CYTOLOGY ORDERABLES Final Result HISTORICAL TESTING LAB RESULTING AGENCY from Last 3 Months or Most Recently Relevant to Health Maintenance Insurance MEDICAID - [place] Care Teams Senior Product Development Manager Relationship Specialty Start Date End Date Kimmy Drake MD [address] [place] [address] PCP - General 12/03/23
--- OUTSIDE RECORDS SUMMARY | 2025-04-03 11:22 | XMS_ITS | Encounter Summary ---
Author Organization [employer] Address [address] [facility] [address] [place] [address] Care Team Providers Care Process Planner Name Role Phone Kimmy Drake MD Primary Care Provider [phone] Rosalio Whitfield RN Unavailable [phone] Mary Alice Victor Unavailable Encounter Details Date Type Department Care Team ([facility] Contact Info) Description 10/07/2022 Orders Only [facility] MEDICINE [address] [place] [address] [phone] Kimmy Drake MD [address] [place] [address] [phone] Pain in both lower extremities (Primary Dx) Social History Tobacco Use Types Packs/Day Years [...] AM EST documented as of this encounter Plan of Treatment Upcoming Encounters Date Type Department Care Team ([facility] Contact Info) Description 04/09/2025 3:30 PM EDT Office Visit [facility] MEDICINE [address] [place] [address] [phone] Kimmy Drake MD [address] [place] [address] 05/22/2025 10:30 AM EST Office Visit [facility] MEDICINE [address] [place] [address] Kimmy Drake MD [address] [place] [address] 06/21/2025 10:30 AM EST Office Visit [facility] OPTOMETRY [address] [place] [address] TarYolie kumari, OD [address] [place] [address] documented as of this encounter Visit Diagnoses Diagnosis Pain in both lower extremities- Primary documented in this encounter Additional Health Concerns Assessment Noted Time PHQ-9 Depression Total Score: 0 08/25/19 23 1:09 PM EST documented as of this encounter Care Teams Process Planner Relationship Specialty Start Date End Date Kimmy Drake MD [address] [place] [address] PCP - General Family Medicine 02/05/22 Rosalio Whitfield, RN [address] [place] [address] Registered Nurse Family Medicine 03/29/25 Mary Alice Victor 03/29/25 documented as of this encounter
--- OUTSIDE RECORDS SUMMARY | 2025-04-03 11:22 | XMS_ITS | Encounter Summary ---
Author Organization [employer] Address [address] [facility] 7t [place] [address] Care Team Providers Care Sound Effects Person Name Role Phone Kimmy Drake MD Primary Care Provider [phone] Rosalio Whitfield RN Unavailable [phone] Mary Alice Victor Unavailable Reason for Visit * Reason Comments Care Coordination CHW chart review Encounter Details Date Type Department Care Team (Latest Contact Info) Description 03/29/2025 Patient Outreach [facility] MEDICINE [address] [place], [place] [phone] Kimmy Drake MD [address] [place], [place] [phone] Care Coordination (CHW chart review) Social History Tobacco Use Types [...] Notes * Mary Alice Victor - 03/29/2025 12:54 PM EDT CM/C3 BRETW Mary Alice Victor Chart Review CHW Mary Alice Victor reviewed chart review completed by KURT Whitfield RN, performed chart review, in [...] ED visits withinthe last 12 months include [facility] ED 03/28/25 Dx chest pain. Last appointment in PCP office on 03/09/25.Next appointment scheduled for 05/22/25 at 10:30am for follow up with PCP. documented in this encounter Plan of Treatment Upcoming Encounters Date Type Department Care Team (Late st Contact Info) Description 04/09/2025 3:30 PM EDT Office Visit [facility] MEDICINE [address] [place] [address] Kimmy Drake MD [address] [place] [address] 05/22/2025 10:30 AM EST Office Visit [facility] MEDICINE [address] [place] [address] Kimmy Drake MD [address] [place] [address] 06/21/2025 10:30 AM EST Office Visit [facility] OPTOMETRY [address] [place] [address] Yolie Zarate, OD [address] [place] [address] documented as of this encounter Visit Diagnoses Not on filedocumented in this encounter Additional Health Concerns Assessment Noted Time PHQ-9 Depression Total Score: 10 025 4:23 PM EDT documented as of this encounter Care Teams Sound Effects Person Relationship Specialty Start Date End Date Kimmy Drake MD [address] [place] [address] PCP - General Family Medicine 02/05/22 Rosalio Whitfield, SPENCER [address] [place] [phone] Registered Nurse Family Medicine 03/29/25 Mary Alice Victor 03/29/25 documented as of this encounter
--- OUTSIDE RECORDS SUMMARY | 2025-04-03 11:22 | XMS_ITS | Encounter Summary ---
Author Organization [employer] Address [address] [facility] [address] [place] [address] Care Team Providers Care Nuclear Medicine Pet Ct Technologist Name Role Phone Kimmy Drake MD Primary Care Provider [phone] Rosalio Whitfiedl RN Unavailable [phone] Mary Alice Victor Unavailable Reason for Referral * Consultation (Routine) - Closed Specialty Diagnoses / Procedures Referred By Carmen alanis Referred To Contact Urology Diagnoses Nephrolithiasis Kimmy Drake MD [address] [place] [address] Phone: tel: fax: [facility] Referral ID Status Reason Start Date Expiration Date V isits Requested Visits Authorized [id number] Closed Specialty Services Required 11/30/2023 11/29/2024 6 6 * Consultation (Routine) - Closed Specialty Diagnoses / Procedures Referred By Carmen alanis Referred To Contact Podiatry Diagnoses Pain in toes of both feet Deformity of right foot Kimmy Drake MD [address] [place] [address] Phone: tel: fax: Kyler Reed DPM Phone: tel: fax: Referral ID Status Reason Start Date Expiration Date V isits Requested Visits Authorized [id number] Closed Specialty Services Required 12/02/2023 12/01/2024 6 6 Encounter Details Date Type Department Care Team (Late st Contact Info) Description 11/26/2023 Orders Only [facility] MEDICINE [address] [place] [address] Kimmy Drake MD [address] [place] [address] Pain in toes of both feet (Primary Dx); Deformity of right foot; Nephrolithiasis; Myopia, unspecified laterality Social History Tobacco Use Types Packs/Day Years [...] with others, in a hotel, in a retirement, living outside on the street, on a [...] Description 04/09/2025 3:30 PM EDT Office Visit [facility] MEDICINE [address] [place] [address] Kimmy Drake MD [address] [place] [address] 05/22/2025 10:30 AM EST Office Visit [facility] MEDICINE [address] [place] [address] Kimmy Drake MD [address] [place] [address] 06/21/2025 10:30 AM EST Office Visit [facility] OPTOMETRY [address] [place] [address] Tarka, Yolie, OD [address] [place] [address] Scheduled Referrals Name Type Priority Associated Diagnoses Orde r Schedule Referral to Podiatry Outpatient Referral Routine Pain in toes of both feet Deformity of right foot Expected: 11/26/2023 (Approximate), Expires: 11/25/2024 Referral to Urology Outpatient Referral Routine Nephrolithiasis Expected: 11/26/2023 (Approximate), Expires: 11/25/2024 documented as of this encounter Visit Diagnoses Diagnosis Pain in toes of both feet- Primary Deformity of right foot Nephrolithiasis Calculus of kidney Myopia, unspecified laterality documented in this encounter Additional Health Concerns Assessment Noted Time PHQ-9 Depression Total Score: 9 03/01/20 23 12:59 PM EDT documented as of this encounter Care Teams Nuclear Medicine Pet Ct Technologist Relationship Specialty Start Date End Date Kimmy Drake MD [address] [place] [address] PCP - General Family Medicine 02/05/22 Rosalio Whitfield RN [address] [place], [place] [address], [place] [address] Registered Nurse Family Medicine 03/29/25 Mary Alice Victor 03/29/25 documented as of this encounter
--- OUTSIDE RECORDS SUMMARY | 2025-04-03 11:22 | XMS_ITS | Encounter Summary ---
Author Organization [employer] Address [address] [facility] 7t [place] [address] Care Team Providers Care Pediatric Hospitalist Name Role Phone Kimmy Drake MD Primary Care Provider [phone] Rosalio Whitfield RN Unavailable [phone] Mary Alice Victor Unavailable Reason for Visit * Reason Comments Care Coordination SDOH Encounter Details Date Type Department Care Team (Latest Contact Info) Description 03/30/2025 Patient Outreach [facility] MEDICINE [address] [place], [place] [phone] Kimmy Drake MD [address] [place], [place] [phone] Care Coordination (SDOH) Social History Tobacco Use Types Packs/Day Years [...] Progress Notes * Mary Alice Victor - 03/30/2025 2:40 PM EDT CHW Mary Alice Victor placed an outbound call to the patient to follow up on SDOH needs. The patient???s name, date of , and address were confirmed. The patient reported doing well. CHW discussed PT1 and informed the patient that an appointment has been scheduled for PT1 on 04/03/2025 at 10:30 AM with the ENT Surgeon of [facility], and another appointment on 04/03/2025 at 9:30AM at [facility]. The patient is aware and was advised to contact CHW with any concernsregarding PT1. The patient also shared ongoing challenges with food insecurity and difficulty finding a 4-bedroom home. CHW will assist by providing appropriate resources. No further questions or concerns were expressed at this time. CHW reinforced direct contact information and the [employer]'s number for any additional needs. The patient was also reminded of extended clinic hours on Mondays and Wednesdays, as well as the Walk-In Urgent Care located in the [facility]. After-hours line for [facility] was provided, which offers nighttime triage services and the option to connect with the on-call provider if needed. The patient verbalized understanding and was able to repeat the information back accurately. A follow-up call will be placed within 10 days. The patient agrees with the plan. documented in this encounter Plan of Treatment Upcoming Encounters Date Type Department Care Team (Late st Contact Info) Description 04/09/2025 3:30 PM EDT Office Visit [facility] MEDICINE [address] [place] [address] Kimmy Drake MD [address] [place] [address] 05/22/2025 10:30 AM EST Office Visit [facility] MEDICINE [address] [place] [address] Kimmy Drake MD [address] [place] [address] 06/21/2025 10:30 AM EST Office Visit [facility] OPTOMETRY [address] [place] [address] TarkaYolie, OD [address] [place] [address] documented as of this encounter Visit Diagnoses Not on filedocumented in this encounter Additional Health Concerns Assessment Noted Time PHQ-9 Depression Total Score: 10 025 4:23 PM EDT documented as of this encounter Care Teams Pediatric Hospitalist Relationship Specialty Start Date End Date Kimmy Drake MD [address] [place] [address] PCP - General Family Medicine 02/05/22 Rosalio Whitfield, SPENCER [address] [place] [address] Registered Nurse Family Medicine 03/29/25 Mary Alice Victor 03/29/25 documented as of this encounter
--- OUTSIDE RECORDS SUMMARY | 2025-04-03 11:22 | XMS_ITS | Encounter Summary ---
Author Organization [employer] Address [address] [facility] 7t [place] [address] Care Team Providers Care Central Supply Tech Name Role Phone Kimmy Drake MD Primary Care Provider [phone] Rosalio Whitfield RN Unavailable [phone] Mary Alice Victor Unavailable Encounter Details Date Type Department Care Team (Late st Contact Info) Description 03/29/2025 Patient Outreach [facility] MEDICINE [address] [place], [place] [phone] Kimmy Drake MD [address] [place], [place] [phone] Social History Tobacco Use Types Packs/Day Years [...] Description 04/09/2025 3:30 PM EDT Office Visit [facility] MEDICINE [address] [place] [address] Kimmy Drake MD [address] [place] [address] 05/22/2025 10:30 AM EST Office Visit [facility] MEDICINE [address] [place] [address] Kimmy Drake MD [address] [place] [address] 06/21/2025 10:30 AM EST Office Visit [facility] OPTOMETRY [address] [place] [address] Yolie Zarate, OD [address] [place] [address] documented as of this encounter Visit Diagnoses Not on filedocumented in this encounter Additional Health Concerns Assessment Noted Time PHQ-9 Depression Total Score: 10 025 4:23 PM EDT documented as of this encounter Care Teams Central Supply Tech Relationship Specialty Start Date End Date Kimmy Drake MD [address] [place] [address] PCP - General Family Medicine 02/05/22 Rosalio Whitfield RN [address] [place] [address] Registered Nurse Family Medicine 03/29/25 Mary Alice Victor 03/29/25 documented as of this encounter
--- OUTSIDE RECORDS SUMMARY | 2025-04-03 11:23 | XMS_ITS | Clinical Summary ---
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 organization. Date Type Department Care Team Description 03/30/2025 Plan of Care Documentation [address] [address] 03/30/2025 Patient Outreach [address] [address] Kimmy Drake MD Care Coordination (SDOH) 03/30/2025 Patient Outreach [address] [address] Kimmy Drake MD Care Management (C3CM- initial assessment/ enrollment) 03/29/2025 Patient Outreach [address] [address] Kimmy Drake MD Care Coordination (CM/CHW outreach) 03/29/2025 Patient Outreach [address] [address] Kimmy Drake MD Care Coordination (CHW chart review) 03/29/2025 Patient Outreach [address] [address] Kimmy Drake MD Care Management (C3- chart review) 03/29/2025 Patient Outreach [address] [address] Kimmy Drake MD 03/12/[address] [address] Kimmy Drake MD Nurse Triage 03/09/2025 10:40 AM EDT Office Visit [facility] [address] [address] Guillaume Patel MD Numbness and tingling in left hand (Primary Dx) 03/09/[address] [address] Kimmy Drake MD 03/09/[address] [address] Eli Tucker, RN Nurse Triage 03/09/2025 Travel 03/09/[address] [address] Kimmy Drake MD Nurse Triage 02/19/2025 10:15 AM EDT Office Visit [address] [address] Kimmy Drake MD Bipolar affective disorder, current episode mixed, current episode severity unspecified (CMS/HCC) (Primary Dx); Pain in both feet; Metabolic dysfunction-associat ed steatotic liver disease (MASLD); Numbness and tingling in left hand; Pain of left heel; Gastroesophageal reflux disease, unspecified whether esophagitis present; Nephrolithiasis; NINA (generalized anxiety disorder); Moderate major depression (CMS/HCC); Mood disorder (CMS/HCC); PTSD (post-traumatic stress disorder); Myopia of both eyes; Throat discomfort; Class 2 severe obesity due to excess calories with serious comorbidity and body mass index (BMI) of 37.0 to 37.9 in adult (CMS/HCC); Fibromyalgia; Chronic pain of both knees; Chronic low back pain, unspecified back pain laterality, unspecified whether sciatica present; Numbness and tingling in right hand 02/19/2025 Patient Outreach [address] [address] Kimmy Drake MD Care Coordination (CHW outreach for [facility] housing search-referral completed ) 02/19/2025 Travel 02/16/[address] [phone] Kimmy Drake MD chartprep 01/01/[address] [phone] Kimmy Drake MD DME Nebulizer Supplies from Last 3 Months Immunizations Immunization Administration Dates Next Due HPV, Quadrivalent 05/29/2011 Hep A, Adult 12/19/2024,11/08/2023 Hep B, adult 12/19/2024 Influenza injectable quadriv alent preservative free 04/02/2022 Influenza, IIV3, injectable 05/11/2014, 1,03/14/2010 Moderna Covid-19 Vaccine 12+ 01/13/2021 Pfizer Covid-19 Vaccine 12+ 11/08/2023, Pneumococcal Conjugate PCV 20 11/08/2023 Pneumococcal Polysaccharide PPSV23 11/18/2020, Tdap 12/18/2019, 6,03/13/2014,01/03,04/14/2011 Social History Tobacco Use Types Packs/Day Years Used Date Smoking Tobacco: Every Day Cigarettes Last attempted to quit: 10/21/2020 Passive Smoke Exposure: Current Smokeless Tobacco: Never Tobacco Cessation:Ready to Q uit: Not Asked; Counseling Given: Not Answered Alcohol Use Standard Drinks/Week Comments Never 0 (1 standard drink = 0.6 oz pur e alcohol) Depression Answer Date Recorded Patient Health Questionnaire-9 Score 10 12/21/2024 Patient Health Questionnaire-9 Score 10 12/21/2024 Last PHQ-9: Questionnaire Data Not on file 0 12/21/2024 Housing Stability Answer Date Recorded What is your housing situation today? I have loren marielos 12/12/[address] you li [...] Orientation Straight 05/18/2022 10 :20 AM EDT Last Filed Vital Signs Vital Sign Reading Time Taken Comments Blood Pressure 108/79 03/09/2025 10:30 AM EDT Pulse 91 03/09/2025 10:30 AM EDT Temperature 36.5 C (97.7 F) 03/09/2025 10:30 AM EDT Respiratory Rate 19 03/09/2025 10:30 AM EDT Oxygen Saturation 99% 03/09/2025 10:30 AM EDT Inhaled Oxygen Concentration - - Weight 103 kg (227 lb) 03/09/2025 10:30 AM EDT Height 165.1 cm (5' 5 ) 03/09/2025 10:30 AM EDT Body Mass Index 37.77 03/09/2025 10:30 AM EDT Plan of Treatment Upcoming Encounters Date Type Department Care Team (Late st Contact Info) Description 04/09/2025 3:30 PM EDT Office Visit [facility] [address] [place] [address] Kimmy Drake MD [address] [place] [address] 05/22/2025 10:30 AM EST Office Visit [facility] [address] [place] [address] Kimmy Drake MD [address] [place] [address] 06/21/2025 10:30 AM EST Office Visit [facility] [address] [place] [address] Yolie Zarate, OD [address] [place] [address] Health Maintenance Due Date Last Done Comments Family Planning (PISQ) 2006 HPV Vaccines (2 - 3-dose series) 06/26/2011 05/29/2011 Cervical Cancer Screening 01/10/2024 HPV/Cotest 01/10/2024 Pap Smear 01/10/2024 01/09/2021 Hepatitis B Vaccines (2 of 3 - 19+ 3-dose series) 01/16/2025 12/19/2024 COVID-19 Vaccine ( - 2024- season) 2025 11/08/2023, 03/13/2022, 01/13/2021, Additional history exists Influenza Vaccine (#1) 2025 , 05/11/2014, 04/23/2011, Additional history exists Depression Monitoring 06/22/2025 12/21/2024, 025 Alcohol/Substance Use Screening 12/19/2025 12/19/2024 Disability Screening 12/19/2025 12/19/2024 Tobacco Screening 02/20/2026 02/20/2025 SDOH Screening 03/30/2026 03/30/2025 DTaP/Tdap/Td Vaccines (6 - Td or Tdap) 12/17/2029 12/18/2019, 12/10/2015, 03/13/2014, Additional history exists Lipid Panel 12/19/2029 12/19/2024, 05/20, 11/08/2023, Additional history exists Zoster Vaccines (1 of 2) 2041 RSV Patients and Patients Aged 60 years or older (1 - 1-dose 75+ series) 2066 Pneumococcal Vaccine: Pediatrics (0 to 5 Years) and At-Risk Patients (6 to 49) Years Completed 11/08/2023, 11/18/2020, 01/04/2012 HIV Screening Completed 12/19/2024, 10/18, 02/09/2022 Hepatitis A Vaccines Completed 12/19/2024, 11/08/19 Hepatitis C Screening Completed 12/19/2024 , 11/08/2023, 02/09/2022 HIB Vaccines Aged Out No longer eligi ble based on patient's age to complete this topic IPV Vaccines Aged Out No longer eligi ble based on patient's age to complete this topic Meningococcal B Vaccine Aged Out No l onger eligible based on patient's age to complete this topic Meningococcal Vaccine Aged Out No dottie neymar eligible based on patient's age to complete this topic RSV under 20 months Aged Out No longe r eligible based on patient's age to complete this topic Rotavirus Vaccines Aged Out No longer eligible based on patient's age to complete this topic Procedures Procedure Name Priority Date/Time Associated Diagnosis Comments AMB REFERRAL TO UROLOGY Routine 01/10/2025 Nephrolithiasis HEPATITIS C AB W/REFL TO HCV RNA, QN, PCR Routine 12/19/2024 12:26 PM EDT Routine screening for STI (sexually transmitted infection) HIV 1/2 ANTIGEN/ANTIBODY, FOURTH GENERATION W/RFL Routine 12/19/2024 12:26 PM EDT Routine screening for STI (sexually transmitted infection) LIPID PANEL WITH REFLEX TO DIRECT LDL Routine 12/19/2024 12:26 PM EDT Class 2 severe obesity due to excess calories with serious comorbidity and body mass index (BMI) of 36.0 to 36.9 in adult (CMS/HCC) HM PAP/HPV Routine 01/09/2021 from Last 3 Months or Most Recently Relevant to Health Maintenance Results * Referral to Urology (01/10/2025) us Kimmy Drake MD OUTPATIENT REFERRAL ORDERABLES F inal Result * (ABNORMAL) Lipid Panel with Reflex to Direct LDL (12/19/2024 12:26 PM EDT) Triglycerides 169(H) <150 mg/dL [facility] Comment:Desirable Triglyceri de: less than 150 mg/dLBorderline High Triglyceride 150-199 mg/dLHigh Triglyceride: 200-499 mg/dLVery High Triglyceride: greater than or equal to 5OO mg/dL Cholesterol 196 <200 mg/dL [facility] Comment:Desirable Cholestero l: less than 200 mg/dLBorderline High Cholesterol: 200-239 mg/dLHigh Cholesterol: greater than 239 mg/dL LDL Cholesterol Calculated 118(H) <100 mg/dL [facility] Comment:Desirable LDL: less than 100 mg/dLNear Optimal/Above Optimal LDL: 110- 129 mg/dLBorderline High LDL: 130-159 mg/dLHigh LDL: 160-189 mg/dLVery High LDL: greater than or equal to 190 mg/dL HDL Cholesterol 45 >40 mg/dL [facility] Comment:Desirable HDL: great er than 40 mg/dL Note: This HDL assay may give artificially low results in patients with liver disease. Blood 12/19/2024 12:2 6 PM EDT 12/19/2024 4:54 PM EDT Kimmy Drake MD LAB BLOOD ORDERABLES Final Resul t Performing Organization Address [facility] Co de Phone Number [facility] [address] [place] [phone] * Hepatitis C Antibody with Reflex to HCV, RNA, Quantitative, Real-Time PCR (12/19/2024 12:26 PM EDT) Hepatitis C Antibody Nonreactive Nonreactive [facility] Comment:Antibodies to HCV no t detected; does not exclude early acuteHCV infection. Blood Venous blood specimen / Unknown 12/19/2024 12:26 PM EDT 12/19/2024 4:54 PM EDT Kimmy Drake MD LAB BLOOD ORDERABLES Final Resul t Performing Organization Address [facility] Co de Phone Number [facility] [address] [place] [phone] * HIV-1/2 Antigen and Antibodies, Fourth Generation, with Reflexes (12/19/2024 12:26 PM EDT) HIV AB/AG Nonreactive Nonreactive [facility] Comment:HIV-1 p24 Ag and/or HIV-1/HIV-2 Ab not detected.A test result that is nonreactive does not exclude thepossibility of exposure to or infection with HIV-1 and/orHIV-2. Nonreactive results in this assay for individualswith prior exposure to HIV-1 and/or HIV-2 may be due toantigen and antibody levels that are below the limit ofdetection of this assay.The [employer] HIV Ag/Ab Combo assay result andsupplemental assay results should be interpreted inconjunction with the patient's clinical presentation,history and other laboratory results. If the results areinconsistent with clinical evidence, additional testing issuggested to confirm the result. Blood Venous blood specimen / Unknown 12/19/2024 12:26 PM EDT 12/19/2024 4:54 PM EDT Kimmy Drake MD LAB BLOOD ORDERABLES Final Resul t [facility] [address] [place] [phone] * Pap Smear (01/09/2021) Pap Negative for intraephithelial lesion or malignancy Negative for intraephithelial lesion or malignancy, Other Historical Provider HEALTH MAINTENANCE Final Result from Last 3 Months or Most Recently Relevant to Health Maintenance [place] [address] [place] [address] C3 Care Teams Superintendent [employer] Mill Relationship Specialty Start Date End Date Kimmy Drake MD [address] [place] [phone] PCP - General Family Medicine 02/05/22 Rosalio Whitfield RN [address] [place] [phone] Registered Nurse Family Medicine 03/29/25 Mary Alice Victor 03/29/25
--- OUTSIDE RECORDS SUMMARY | 2025-04-03 11:23 | XMS_ITS | Encounter Summary ---
Author Organization [employer] Address [address] [facility] 7t [place] [address] Care Team Providers Care Railroad Car Loader Name Role Phone Kimmy Drake MD Primary Care Provider [phone] Rosalio Whitfield RN Unavailable [phone] Mary Alice Victor Unavailable Reason for Visit * Reason Onset Date Comments Appointment Request 11/09/2024 Encounter Details Date Type Department Care Team (Late st Contact Info) Description 11/09/2024 Telephone [facility] [address] [place] [address] iKmmy Drake MD 230 [place], [place] [phone] Appointment Request Social History Tobacco Use Types Packs/Day Years [...] with others, in a hotel, in a alf, living outside on the street, on a [...] encounter Miscellaneous Notes * Telephone Encounter - June Ohara - 11/09/2024 10:17 AM EDT Tc from pt requesting a call back for schedule physical appointment. Recall due september documented in this encounter Plan of Treatment Upcoming Encounters Date Type Department Care Team ([facility] st Contact Info) Description 04/09/2025 3:30 PM EDT Office Visit [facility] [address] [place] [address] Kimmy Drake MD [address] [place] [address] 05/22/2025 10:30 AM EST Office Visit [facility] [address] [place] [address] Kimmy Drake MD [address] [place] [address] 06/21/2025 10:30 AM EST Office Visit [facility] [address] [place] [address] Yolie Zarate, OD [address] [place] [address] documented as of this encounter Visit Diagnoses Not on filedocumented in this encounter Additional Health Concerns Assessment Noted Time PHQ-9 Depression Total Score: 9 03/01/20 23 12:59 PM EDT documented as of this encounter Care Teams Railroad Car Loader Relationship Specialty Start Date End Date Kimmy Drake MD [address] [place] [phone] PCP - General Family Medicine 02/05/22 Rosalio Whitfield RN [address] [place] [phone] Registered Nurse Family Medicine 03/29/25 Mary Alice Victor 03/29/25 documented as of this encounter
--- OUTSIDE RECORDS SUMMARY | 2025-04-03 11:23 | XMS_ITS | Encounter Summary ---
Author Organization [employer] Address [address] [facility] 7t [place] [address] Care Team Providers Care Hvac Mechanic Name Role Phone Kimmy Drake MD Primary Care Provider [phone] Rosalio Whitfield RN Unavailable [phone] Mary Alice Victor Unavailable Reason for Visit * Reason Onset Date Comments Nurse Triage 03/12/2025 Encounter Details Date Type Department Care Team (Late st Contact Info) Description 03/12/2025 Telephone [facility] [address] [place], [place] [phone] Kimmy Drake MD [address] [place], [place] [phone] Nurse Triage Social History Tobacco Use Types [...] got money to buy more: Often true 12/12/2024 Within the past 12 months,th e food you bought just didn't last and you didn't have enough money to get more: Often true Transportation Answer Date Recorded In the past 12 months, has l ack of transportation kept you from medical appts, meetings, work or from getting things needed for daily living? No 12/12/2024 Utilities Answer Date Recorded In the past 12 months, has t he electric, gas, oil or water company threatened to shut off services in your home? Yes 12/12/2024 Depression Answer Date Recorded Patient Health Questionnaire-2 [...] encounter Miscellaneous Notes * Telephone Encounter - Wilda Pabon RN - 03/12/2025 12:51 PM EDT Hi Wilda, The recommendation was to use Diclofenac 1% topical gel (not Lidocaine). I believe her PCP (Dr. Drake) prescribed both of these Rx, but the patient said the co-pay was too high. I suspect she was referring to the Lidocaine patch. I recommended to go back to the pharmacy for the Diclofenac gel. I also informed Diclofenac would cost ~$10 out of pocket in case if her insurance did not cover. She was okay with that. Could you relay the information? Thank you. Guillaume Me to Guillaume Patel MD * Telephone Encounter - Wilda Pabon RN - 03/12/2025 12:21 PM EDT Called pt to triage, spoke to pt. Pt reports persistent severe pain in her left shoulder and upper back. Pt seen on 03/09 and prescribed Lidoderm patches which pt states her insurance will not pay forand asking for something else. Pt has referral for further nerve testing but her appt is not until late March and does not want to wait that long. Advised will task to provider regarding pt concerns. Pt understands and agrees with plan. Pt declines triage or further appt at this time. * Telephone Encounter - Kimberly Granger - 03/12/2025 11:26 AM EDT Symptoms: Arm Pain - Not From Injury, Back Pain - Not From Injury Outcome: Transfer to a nurse or provider NOW! Reason: Age over 30: sudden AND severe upper back pain The caller accepted this outcome. Contact pt at [phone] documented in this encounter Plan of Treatment Upcoming Encounters Date Type Department Care Team (Late Contact Info) Description 04/09/2025 3:30 PM EDT Office Visit [facility] [address] [place] [address] Kimmy Drake MD [address] [place] [address] 05/22/2025 10:30 AM EST Office Visit [facility] [address] [place] [address] Kimmy Drake MD [address] [place] [address] 06/21/2025 10:30 AM EST Office Visit [facility] [address] [place] [address] Yolie Zarate, OD [address] [place] [address] documented as of this encounter Visit Diagnoses Not on filedocumented in this encounter Additional Health Concerns Assessment Noted Time PHQ-9 Depression Total Score: 10 12/21/ 025 4:23 PM EDT documented as of this encounter Care Teams Hvac Mechanic Relationship Specialty Start Date End Date Kimmy Drake MD [address] [place] [address] PCP - General Family Medicine 02/05/22 Rosalio Whitfield RN [address] [place] [address] Registered Nurse Family Medicine 03/29/25 Mary Alice Victor 03/29/25 documented as of this encounter
--- OUTSIDE RECORDS SUMMARY | 2025-04-03 11:23 | XMS_ITS | Encounter Summary ---
Author Organization [employer] Address [address] [facility] 7t [place] [address] Care Team Providers Care Electronic Game Developer Name Role Phone Kimmy Drake MD Primary Care Provider [phone] Rosalio Whitfield RN Unavailable [phone] Mary Alice Victor Unavailable Encounter Details Date Type Department Care Team (Late st Contact Info) Description 03/28/2024 Orders Only [facility] [address] [place], [place] [phone] Kimmy Drake MD [address] [place], [place] [phone] Syncope, unspecified syncope type (Primary Dx) Social History Tobacco Use Types [...] with others, in a hotel, in a intermediate, living outside on the street, on a [...] Description 04/09/2025 3:30 PM EDT Office Visit [facility] [address] [place] [address] Kimmy Drake MD [address] [place] [address] 05/22/2025 10:30 AM EST Office Visit [facility] [address] [place] [address] Kimmy Drake MD [address] [place] [address] 06/21/2025 10:30 AM EST Office Visit [facility] [address] [place] [address] TarYolie kumari, OD [address] [place] [address] Scheduled Orders Name Type Priority Associated Diagnoses Orde r Schedule Albumin, Random Urine W/Creatinine Lab Routine Syncope, unspecified syncope type Expected: 03/28/2024 (Approximate), Expires: 03/28/2025 documented as of this encounter Procedures Procedure Name Priority Date/Time Associated Diagnosis Comments TSH W/REFLEX TO FT4 Routine 06/08/2024 1 1:51 AM EST Syncope, unspecified syncope type LIPID PANEL WITH REFLEX TO DIRECT LDL Routine 06/08/2024 11:51 AM EST Syncope, unspecified syncope type HEMOGLOBIN A1C Routine 06/08/2024 11:51 AM EST Syncope, unspecified syncope type COMPREHENSIVE METABOLIC PANEL Routine 06/08/2024 11:51 AM EST Syncope, unspecified syncope type documented in this encounter Results * Lipid Panel with Reflex to Direct LDL (06/08/2024 11:51 AM EST) Triglycerides 140 <150 mg/dL [facility] Comment:Desirable Triglyceri de: less than 150 mg/dLBorderline High Triglyceride 150-199 mg/dLHigh Triglyceride: 200-499 mg/dLVery High Triglyceride: greater than or equal to 5OO mg/dL Cholesterol 151 <200 mg/dL [facility] Comment:Desirable Cholestero l: less than 200 mg/dLBorderline High Cholesterol: 200-239 mg/dLHigh Cholesterol: greater than 239 mg/dL LDL Cholesterol Calculated 81 <100 mg/dL [facility] Comment:Desirable LDL: less than 100 mg/dLNear Optimal/Above Optimal LDL: 110- 129 mg/dLBorderline High LDL: 130-159 mg/dLHigh LDL: 160-189 mg/dLVery High LDL: greater than or equal to 190 mg/dL HDL Cholesterol 42 >40 mg/dL [facility] Comment:Desirable HDL: great er than 40 mg/dL Note: This HDL assay may give artificially low results in patients with liver disease. Blood 06/08/2024 11:5 1 AM EST 06/08/2024 1:07 PM EST us Kimmy Drake MD LAB BLOOD ORDERABLES Final Resul t [facility] [address] [place] [phone] * (ABNORMAL) Comprehensive Metabolic Panel (06/08/2024 11:51 AM EST) Sodium 141 135 - 145 mmol/L [facility] Potassium 3.7 3.3 - 5.1 mmol/L [facility] Chloride 106 96 - 108 mmol/L [facility] Carbon Dioxide 28 22 - 29 mmol/L [facility] Anion Gap 11(L) 12 - 20 [facility] Urea Nitrogen (BUN) 10 9 - 16 mg/dL [facility] Creatinine, Serum 0.63 0.5 - 1.4 mg/dL [facility] Estimated Glomerular Filt Rate >60 [facility] Comment:Chronic Kidney Disea se: Estimated GFR < 60 mL/min/[id number] Kidney Disease: Estimated GFR < 15 mL/min/1.73m2 Glucose 91 60 - 115 mg/dL [facility] Calcium 9.0 8.4 - 10.2 mg/dL [facility] Bilirubin, Total 0.3 0.0 - 1.0 mg/dL [facility] Aspartate Amino Transferase 20 5 - 31 U/L [facility] Alanine Aminotransferase 30 0 - 31 U/L [facility] Total Protein 6.8 6.5 - 8.0 g/dL [facility] Albumin Level 3.9 3.5 - 5.0 g/dL [facility] Alkaline Phosphatase 77 39 - 117 U/L [facility] Blood Venous blood specimen / Unknown 06/08/2024 11:51 AM EST 06/08/2024 1:07 PM EST us Kimmy Drake MD LAB BLOOD ORDERABLES Final Resul t [facility] [address] [place] [phone] * Hemoglobin A1c (06/08/2024 11:51 AM EST) Hemoglobin A1c 4.8 <6.0 % [facility] Comment:Hemoglobin A1C Refer ence Range Adults: 4.8 - 6.0 % Non diabetic: < 6.0 % Goal: < 7.0 %Additional Action Suggested: > 8.0 %Note: Hemoglobin A1c results are invalid for patients with abnormal amounts of HbF. Blood transfusions may impact the HbA1c concentration in the patient sample. Estimated Average Glucose 91 mg/dL [facility] Comment:eAG = Estimated ave rage glucose which is %A1C expressed asaverage glucose, using the formula of the [id number] Glucose study (ADAG), Diabetes Care, Vol.31,#8,2007 Blood Venous blood specimen / Unknown 06/08/2024 11:51 AM EST 06/08/2024 1:07 PM EST Kimmy Drake MD LAB BLOOD ORDERABLES Final Resul t Performing Organization Address [facility] de Phone Number [facility] [address] [place] [phone] * TSH with Reflex to Free T4 (06/08/2024 11:51 AM EST) TSH reflex Free T4 1.50 0.32 - 4.0 uIU/mL [facility] Blood 06/08/2024 11:5 1 AM EST 06/08/2024 1:07 PM EST Kimmy Drake MD LAB BLOOD ORDERABLES Final Resul t Performing Organization Address [facility] de Phone Number [facility] [address] [place] [phone] documented in this encounter Visit Diagnoses Diagnosis Syncope, unspecified syncope type- Primary documented in this encounter Additional Health Concerns Assessment Noted Time PHQ-9 Depression Total Score: 9 03/01/20 23 12:59 PM EDT documented as of this encounter Care Teams Electronic Game Developer Relationship Specialty Start Date End Date Kimmy Drake MD [address] [place] [phone] PCP - General Family Medicine 02/05/22 Rosalio Whitfield, RN [address] [place] [address] [place] [address] Registered Nurse Family Medicine 03/29/25 Mary Alice Victor 03/29/25 documented as of this encounter
== END 2025-04-03 09:05 | disposition home or self-care (01) ==
LOC: HO.NEURO 09:04
PROVIDERS: PCP Family Medicine; Visit Provider Family Medicine
DX: R20.0 Anesthesia of skin (principal); R20.2 Paresthesia of skin
CPT/HCPCS: 95886; 95910

== ENCOUNTER → 2025-04-03 09:07 | Outpatient (BNV) | payer MEDICAID, SELFPAY | PROVIDERS: PCP Family Medicine; Visit Provider Psychiatry & Neurology Neurology | DX: R20.0 Anesthesia of skin (principal); R20.2 Paresthesia of skin | CPT/HCPCS: 95886; 95909 ==

== ENCOUNTER 2025-05-08 09:54 | Outpatient (REF) | payer MEDICAID, SELFPAY ==
--- OUTSIDE RECORDS SUMMARY | 2025-05-08 11:22 | XMS_ITS | Encounter Summary ---
Author Organization [employer] Address 75 [facility] 7 [place] [address] Care Team Providers Care Tanyard Worker Name Role Phone Kimmy Drake MD Primary Care Provider [phone] Rosalio Whitfield RN Unavailable [phone] Mary Alice Victor Unavailable Reason for Visit * Reason Comments Med Change Request Encounter Details Date Type Department Care Team (Late Contact Info) Description 02/09/2023 Refill [facility] MEDICINE [address] [place] [address] [phone] Kimmy Drake MD [address] [place] [address] [phone] Gastroesophageal reflux disease, unspecified whether esophagitis present [...] Department Care Team (Late Contact Info) Description 05/22/2025 10:30 AM EST Office Visit [facility] MEDICINE [address] [place] [address] [phone] Kimmy Drake MD [address] [place] [address] [phone] 06/21/2025 10:30 AM EST Office Visit [facility] OPTOMETRY [address] [place], [place] [phone] Yolie Zarate, OD [address] [place] [address] documented as of this encounter Visit Diagnoses Diagnosis Gastroesophageal reflux disease, unspecified whether esophagitis present documented in this encounter Additional Health Concerns Assessment Noted Time PHQ-9 Depression Total Score: 023 10:35 AM EDT documented as of this encounter Care Teams Tanyard Worker Relationship Specialty Start Date End Date Kimmy Drake MD 230 [place], [place] [phone] PCP - General Family Medicine 02/05/22 Rosalio Whitfield RN [address] [place] [address] Registered Nurse Family Medicine 03/29/25 Mary Alice Victor 03/29/25 documented as of this encounter
--- OUTSIDE RECORDS SUMMARY | 2025-05-08 11:22 | XMS_ITS | Encounter Summary ---
Author Organization [employer] Address 75 [facility] 7t [place] [address] Care Team Providers Care Ciso Name Role Phone Kimmy Drake MD Primary Care Provider Rosalio Whitfield RN Unavailable [phone] Mary Alice Victor Unavailable Reason for Visit * Reason Onset Date Comments Call request 10/13/2022 Encounter Details Date Type Department Care Team (Late st Contact Info) Description 10/13/2022 Telephone [facility] MEDICINE [address] [place], [place] [phone] Kimmy Drake MD 230 [place], [place] [phone] Call request Social History Tobacco Use Types [...] 10/13/2022 1:11 PM EDT Brett Ruiz with [facility] Orthopedic requesting a call regarding pt. Please contact Sara at [phone] documented in this encounter Plan of Treatment Upcoming Encounters Date Type Department Care Team (Late st Contact Info) Description 05/22/2025 10:30 AM EST Office Visit [facility] MEDICINE [address] [place] [address] Kimmy Drake MD 230 [place] [address] 06/21/2025 10:30 AM EST Office Visit [facility] OPTOMETRY [address] [place], [place] [phone] TarYolie kumari, OD 267 [place] [address] documented as of this encounter Visit Diagnoses Not on filedocumented in this encounter Additional Health Concerns Assessment Noted Time PHQ-9 Depression Total Score: 0 08/25/19 23 1:09 PM EST documented as of this encounter Care Teams Ciso Relationship Specialty Start Date End Date Kimmy Drake MD 230 [place] [address] PCP - General Family Medicine 02/05/22 Rosalio Whitfield, SPENCER [address] [place] [address] Registered Nurse Family Medicine 03/29/25 Mary Alice Victor 03/29/25 documented as of this encounter
--- OUTSIDE RECORDS SUMMARY | 2025-05-08 11:22 | XMS_ITS ---
Author Organization [employer] Address [address] [place] [address] 7 [place] [address] Care Team Providers Care Cable Television Installer Name Role Phone Kimmy Drake MD Primary Care Provider [phone] Rosalio Whitfield RN Unavailable [phone] Mary Alice Victor Unavailable CM Complex Status:Enrolled (Active) Start date:03/29/2025 Enrollment date:03/30/2025 Enrollment reason:ADT Feed Overview ADT- [facility] ED 03/28/25 Dx chest pain Case Team Name Relationship Phone Rosalio Whitfield RN(Responsible Staff) Registered Nurse [phone] Continued Care and Services Coordination
--- OUTSIDE RECORDS SUMMARY | 2025-05-08 11:22 | XMS_ITS | Encounter Summary ---
Author Organization [employer] Address [address] [facility] [address] [place] [address] Care Team Providers Care Site Identification Specialist Name Role Phone Kimmy Drake MD Primary Care Provider [phone] Rosalio Whitfield RN Unavailable [phone] Mary Alice Victor Unavailable Encounter Details Date Type Department Care Team ([facility] Contact Info) Description 10/07/2022 Orders Only [facility] MEDICINE [address] [place] [address] [phone] Kimmy Drake MD [address] [place] [address] [phone] Pain in both lower extremities (Primary Dx) [...] Upcoming Encounters Date Type Department Care Team ([facility] Contact Info) Description 05/22/2025 10:30 AM EST Office Visit [facility] MEDICINE [address] [place] [address] [phone] Kimmy Drake MD 230 [place], [place] [phone] 06/21/2025 10:30 AM EST Office Visit [facility] OPTOMETRY [address] [place], [place] [phone] Yolie Zarate, OD 267 [place], [place] [phone] documented as of this encounter Visit Diagnoses Diagnosis Pain in both lower extremities- Primary documented in this encounter Additional Health Concerns Assessment Noted Time PHQ-9 Depression Total Score: 0 08/25/19 23 1:09 PM EST documented as of this encounter Care Teams Site Identification Specialist Relationship Specialty Start Date End Date Kimmy Drake MD 230 [place], [place] [phone] PCP - General Family Medicine 02/05/22 Rosalio Whitfield RN [address] [place] [address] Registered Nurse Family Medicine 03/29/25 Mary Alice Victor 03/29/25 documented as of this encounter
--- OUTSIDE RECORDS SUMMARY | 2025-05-08 11:22 | XMS_ITS ---
Author Organization [employer] Address [address] [place] [address] 7t [place] [address] Care Team Providers Care Wordpress Developer Name Role Phone Kimmy Drake MD Primary Care Provider [phone] Rosalio Whitfield RN Unavailable [phone] Mary Alice Victor Unavailable CHW Complex Status:Enrolled (Active) Start date:03/29/2025 Enrollment date:03/30/2025 Enrollment reason:ADT Feed Overview ADT- [facility] ED 03/28/25 Dx chest pain. Please outreach for enrollment. Case Team Name Relationship Phone Mary Alice Victor(Responsible Staff) [phone] Continued Care and Services Coordination
--- OUTSIDE RECORDS SUMMARY | 2025-05-08 11:22 | XMS_ITS | Encounter Summary ---
Author Organization [employer] [facility] Address 75 [facility] 7t [place] [address] Care Team Providers Care Auto Brake Mechanic Name Role Phone Kimmy Drake MD Primary Care Provider [phone] Rosalio Whitfield RN Unavailable [phone] Mary Alice Victor Unavailable Reason for Visit * Reason Comments Med Refill Encounter Details Date Type Department Care Team ([facility] Contact Info) Description 01/31/2023 Refill [facility] MEDICINE [address] [place], [place] [phone] Kimmy Drake MD 230 [place], [place] [phone] Gastroesophageal reflux disease, unspecified whether esophagitis present [...] Description 05/22/2025 10:30 AM EST Office Visit [facility] MEDICINE 230 [place] [address] Kimmy Drake MD 230 [place], [place] [phone] 06/21/2025 10:30 AM EST Office Visit [facility] OPTOMETRY 267 [place] [address] Yolie Zarate, OD 267 [place] [address] documented as of this encounter Visit Diagnoses Diagnosis Gastroesophageal reflux disease, unspecified whether esophagitis present documented in this encounter Additional Health Concerns Assessment Noted Time PHQ-9 Depression Total Score: 023 10:35 AM EDT documented as of this encounter Care Teams Auto Brake Mechanic Relationship Specialty Start Date End Date Kimmy Drake MD 230 [place] [address] PCP - General Family Medicine 02/05/22 Rosalio Whitfield RN [address] [place] [address] Registered Nurse Family Medicine 03/29/25 Mary Alice Victor 03/29/25 documented as of this encounter
--- OUTSIDE RECORDS SUMMARY | 2025-05-08 11:22 | XMS_ITS | Encounter Summary ---
Author Organization [employer] Address 75 [facility] 7t [place] [address] Care Team Providers Care Hired Help Name Role Phone Kimmy Drake MD Primary Care Provider [phone] Rosalio Whitfield RN Unavailable [phone] Mary Alice Victor Unavailable Reason for Visit * Reason Onset Date Comments Nurse Triage 03/06/2024 Encounter Details Date Type Department Care Team (Late st Contact Info) Description 03/06/2024 Telephone [facility] MEDICINE 230 [place] [address] Kimmy Drake MD 230 [place], [place] [phone] Nurse Triage Social History Tobacco Use Types [...] with others, in a hotel, in a custodial, living outside on the street, on a [...] will go to the urgent care at [facility] Pt is advised of the benefit of going to the ED. Pt reports will be coming to [facility]. Triage ended. Insurance is verified as active. [...] Description 05/22/2025 10:30 AM EST Office Visit [facility] MEDICINE 230 [place] [address] Kimmy Drake MD 230 [place] [address] 06/21/2025 10:30 AM EST Office Visit [facility] OPTOMETRY 267 [place] [address] Tarka, Yolie, OD 267 [place] [address] documented as of this encounter Visit Diagnoses Not on filedocumented in this encounter Additional Health Concerns Assessment Noted Time PHQ-9 Depression Total Score: 9 03/01/20 23 12:59 PM EDT documented as of this encounter Care Teams Hired Help Relationship Specialty Start Date End Date Kimmy Drake MD 230 [place] [address] PCP - General Family Medicine 02/05/22 Rosalio Whitfield RN [address] [place] [address] Registered Nurse Family Medicine 03/29/25 Mary Alice Victor 03/29/25 documented as of this encounter
--- OUTSIDE RECORDS SUMMARY | 2025-05-08 11:22 | XMS_ITS | Encounter Summary ---
Author Organization [employer] [facility] Address 75 [facility] 7t [place] [address] Care Team Providers Care Oral Hygienist Name Role Phone Kimmy Drake MD Primary Care Provider [phone] Rosalio Whitfield RN Unavailable [phone] Mary Alice Victor Unavailable Reason for Visit * Reason Comments Med Refill Encounter Details Date Type Department Care Team (Late Contact Info) Description 02/10/2023 Refill [facility] MEDICINE [address] [place] [address] [phone] Kimmy Drake MD [address] [place] [address] [phone] Gastroesophageal reflux disease, unspecified whether esophagitis present [...] Description 05/22/2025 10:30 AM EST Office Visit [facility] MEDICINE 230 [place], [place] [phone] Kimmy Drake MD [address] [place] [address] [phone] 06/21/2025 10:30 AM EST Office Visit [facility] OPTOMETRY 267 [place], [place] [phone] Yolie Zarate, OD 267 [place] [address] documented as of this encounter Visit Diagnoses Diagnosis Gastroesophageal reflux disease, unspecified whether esophagitis present documented in this encounter Additional Health Concerns Assessment Noted Time PHQ-9 Depression Total Score: 023 10:35 AM EDT documented as of this encounter Care Teams Oral Hygienist Relationship Specialty Start Date End Date Kimmy Drake MD 230 [place], [place] [phone] PCP - General Family Medicine 02/05/22 Rosalio Whitfield RN [address] [place] [address] Registered Nurse Family Medicine 03/29/25 Mary Alice Victor 03/29/25 documented as of this encounter
--- OUTSIDE RECORDS SUMMARY | 2025-05-08 11:23 | XMS_ITS | Encounter Summary ---
Author Organization [employer] Address 75 [facility] 7t [place] [address] Care Team Providers Care Service Desk Analyst Name Role Phone Kimmy Drake MD Primary Care Provider [phone] Rosalio Whitfield RN Unavailable Mary Alice Victor Unavailable Reason for Referral * PFT (Routine) - Authorized Specialty Diagnoses / Procedures Referred By Contac t Referred To Contact Diagnoses Dyspnea, unspecified type Procedures Pulmonary Function Test Kimmy Drake MD 230 [place] [address] Phone: tel: fax: [facility] Referral ID Status Reason Start Date Expiration Date V isits Requested Visits Authorized [id number] Authorized 04/20/2025 04/20/2026 1 1 Encounter Details Date Type Department Care Team (Late st Contact Info) Description 04/20/2025 Orders Only [facility] MEDICINE [address] [place], [place] [phone] Kimmy Drake MD [address] [place] [address] Dyspnea, unspecified type (Primary Dx) Social History Tobacco Use [...] Description 05/22/2025 10:30 AM EST Office Visit [facility] MEDICINE [address] [place] [address] Kimmy Drake MD 230 [place] [address] 06/21/2025 10:30 AM EST Office Visit [facility] OPTOMETRY 267 [place] [address] Dudley Zaratessica, OD [address] [place] [address] Scheduled Orders Name Type Priority Associated Diagnoses Orde r Schedule Pulmonary Function Test PFT Routine Dyspnea, unspecified type Expected: 04/20/2025, Expires: 10/19/2025 documented as of this encounter Visit Diagnoses Diagnosis Dyspnea, unspecified type- Primary documented in this encounter Additional Health Concerns Assessment Noted Time PHQ-9 Depression Total Score: 025 4:23 PM EDT documented as of this encounter Care Teams Service Desk Analyst Relationship Specialty Start Date End Date Kimmy Drake MD 230 [place] [address] PCP - General Family Medicine 02/05/22 Rosalio Whitfield, SPENCER 505 [place] [address] Registered Nurse Family Medicine 03/29/25 Mary Alice Victor 03/29/25 documented as of this encounter
--- OUTSIDE RECORDS SUMMARY | 2025-05-08 11:23 | XMS_ITS | Encounter Summary ---
Author Organization [employer] Address 75 [facility] 7t [place] [address] Care Team Providers Care Animation Director Name Role Phone Kimmy Drake MD Primary Care Provider [phone] Rosalio Whitfield RN Unavailable [phone] Mary Alice Victor Unavailable Encounter Details Date Type Department Care Team (Late st Contact Info) Description 06/21/2024 Orders Only [facility] 230 [place] [address] Provider, MD Joy Social History Tobacco Use [...] Description 05/22/2025 10:30 AM EST Office Visit [facility] MEDICINE 230 [place] [address] Kimmy Drake MD 230 [place] [address] 06/21/2025 10:30 AM EST Office Visit [facility] OPTOMETRY 267 [place] [address] Yolie Zarate, OD 267 [place] [address] documented as of this encounter Procedures Procedure Name Priority Date/Time Associated Diagnosis Comments CT ABD/PELVIS W/ IV CONTRAST ONLY Routine 06/20/2024 3:13 PM EST documented in this encounter Results * CT ABD/PELVIS W/ IV CONTRAST ONLY (06/20/2024 3:13 PM EST) Anatomical Region Laterality Modality Body, Pelvis, Abdomen Computed T omography us Historical Provider MD HERRING CT PROCEDURES Final R esult documented in this encounter Visit Diagnoses Not on filedocumented in this encounter Additional Health Concerns Assessment Noted Time PHQ-9 Depression Total Score: 9 03/01/20 23 12:59 PM EDT documented as of this encounter Care Teams Animation Director Relationship Specialty Start Date End Date Kimmy Drake MD [address] [place] [address] PCP - General Family Medicine 02/05/22 Rosalio Whitfield RN [address] [place] [address] Registered Nurse Family Medicine 03/29/25 Mary Alice Victor 03/29/25 documented as of this encounter
--- OUTSIDE RECORDS SUMMARY | 2025-05-08 11:23 | XMS_ITS | Encounter Summary ---
Author Organization [employer] Address 75 [facility] 7t [place] [address] Care Team Providers Care Weight Engineer Name Role Phone Kimmy Drake MD Primary Care Provider [phone] Rosalio Whitfield RN Unavailable [phone] Mary Alice Victor Unavailable Encounter Details Date Type Department Care Team (Late st Contact Info) Description 03/28/2024 Orders Only [facility] MEDICINE 230 [place], [place] [phone] Kimmy Drake MD 230 [place], [place] [phone] Syncope, unspecified syncope type (Primary Dx) Social [...] with others, in a hotel, in a snf, living outside on the street, on a [...] Description 05/22/2025 10:30 AM EST Office Visit [facility] MEDICINE 230 [place] [address] Kimmy Drake MD 230 [place] [address] 06/21/2025 10:30 AM EST Office Visit [facility] OPTOMETRY 267 [place] [address] Yolie Zarate, OD 267 [place] [address] documented as of this encounter Procedures Procedure [...] 11:51 AM EST) Triglycerides 140 <150 mg/dL [facility] Comment:Desirable Triglyceri de: less than 150 mg/dLBorderline High Triglyceride 150-199 mg/dLHigh Triglyceride: 200-499 mg/dLVery High Triglyceride: greater than or equal to 5OO mg/dL Cholesterol 151 <200 mg/dL [facility] Comment:Desirable Cholestero l: less than 200 mg/dLBorderline High Cholesterol: 200-239 mg/dLHigh Cholesterol: greater than 239 mg/dL LDL Cholesterol Calculated 81 <100 mg/dL [facility] Comment:Desirable LDL: less than 100 mg/dLNear Optimal/Above Optimal LDL: 110- 129 mg/dLBorderline High LDL: 130-159 mg/dLHigh LDL: 160-189 mg/dLVery High LDL: greater than or equal to 190 mg/dL HDL Cholesterol 42 >40 mg/dL [facility] Comment:Desirable HDL: great er than 40 mg/dL Note: This HDL assay may give artificially low results in patients with liver disease. Blood 06/08/2024 11:5 1 AM EST 06/08/2024 1:07 PM EST us Kimmy Drake MD LAB BLOOD ORDERABLES Final Resul t [facility] [address] [place] [phone] * (ABNORMAL) Comprehensive Metabolic Panel (06/08/2024 11:51 AM EST) Sodium 141 135 - 145 mmol/L [facility] Potassium 3.7 3.3 - 5.1 mmol/L [facility] Chloride 106 96 - 108 mmol/L [facility] Carbon Dioxide 28 22 - 29 mmol/L [facility] Anion Gap 11(L) 12 - 20 [facility] Urea Nitrogen (BUN) 10 9 - 16 mg/dL [facility] Creatinine, Serum 0.63 0.5 - 1.4 mg/dL [facility] Estimated Glomerular Filt Rate >60 [facility] Comment:Chronic Kidney Disea se: Estimated GFR < 60 mL/min/[id number] Kidney Disease: Estimated GFR < 15 mL/min/1.73m2 Glucose 91 60 - 115 mg/dL [facility] Calcium 9.0 8.4 - 10.2 mg/dL [facility] Bilirubin, Total 0.3 0.0 - 1.0 mg/dL [facility] Aspartate Amino Transferase 20 5 - 31 U/L [facility] Alanine Aminotransferase 30 0 - 31 U/L [facility] Total Protein 6.8 6.5 - 8.0 g/dL [facility] Albumin Level 3.9 3.5 - 5.0 g/dL [facility] Alkaline Phosphatase 77 39 - 117 U/L [facility] Blood Venous blood specimen / Unknown 06/08/2024 11:51 AM EST 06/08/2024 1:07 PM EST us Kimmy Drake MD LAB BLOOD ORDERABLES Final Resul t [facility] [address] [place] [phone] * Hemoglobin A1c (06/08/2024 11:51 AM EST) Hemoglobin A1c 4.8 <6.0 % [facility] Comment:Hemoglobin A1C Refer ence Range Adults: 4.8 - 6.0 % Non diabetic: < 6.0 % Goal: < 7.0 %Additional Action Suggested: > 8.0 %Note: Hemoglobin A1c results are invalid for patients with abnormal amounts of HbF. Blood transfusions may impact the HbA1c concentration in the patient sample. Estimated Average Glucose 91 mg/dL [facility] Comment:eAG = Estimated ave rage glucose which is %A1C expressed asaverage glucose, using the formula of the T5D-DeallduNxsyduu Glucose study (ADAG), Diabetes Care, Vol.31,#8,Aug. 2007 Blood Venous blood specimen / Unknown 06/08/2024 11:51 AM EST 06/08/2024 1:07 PM EST us Kimmy Drake MD LAB BLOOD ORDERABLES Final Resul t Performing Organization Address City/[facility]/ZIP Co de Phone Number [facility] [address] [place] [address] [phone] * TSH with Reflex to Free T4 (06/08/2024 11:51 AM EST) TSH reflex Free T4 1.50 0.32 - 4.0 uIU/mL [facility] Blood 06/08/2024 11:5 1 AM EST 06/08/2024 1:07 PM EST Kimmy Drake MD LAB BLOOD ORDERABLES Final Resul t Performing Organization Address City/[facility] Co de Phone Number [facility] [address] [place] [phone] documented in this encounter Visit Diagnoses Diagnosis Syncope, unspecified syncope type- Primary documented in this encounter Additional Health Concerns Assessment Noted Time PHQ-9 Depression Total Score: 9 03/01/20 23 12:59 PM EDT documented as of this encounter Care Teams Weight Engineer Relationship Specialty Start Date End Date Kimmy Drake MD 230 [place] [address] PCP - General Family Medicine 02/05/22 Rosalio Whitfield RN [address] [place] [address] Registered Nurse Family Medicine 03/29/25 Mary Alice Victor 03/29/25 documented as of this encounter
--- OUTSIDE RECORDS SUMMARY | 2025-05-08 11:23 | XMS_ITS | Encounter Summary ---
Author Organization [employer] Address 75 [facility] 7t [place] [address] Care Team Providers Care Bioprocess Development Engineer Name Role Phone Kimmy Drake MD Primary Care Provider [phone] Rosalio Whitfield RN Unavailable [phone] Mary Alice Victor Unavailable Reason for Visit * Reason Onset Date Comments Nurse Triage 03/12/2025 Encounter Details Date Type Department Care Team (Late st Contact Info) Description 03/12/2025 Telephone [facility] MEDICINE 230 [place], [place] [phone] Kimmy Drake MD 230 [place], [place] [phone] Nurse Triage Social History Tobacco Use Types [...] caller accepted this outcome. Contact pt at [phone] documented in this encounter Plan of Treatment Upcoming Encounters Date Type Department Care Team (Late st Contact Info) Description 05/22/2025 10:30 AM EST Office Visit [facility] MEDICINE [address] [place] [address] Kimmy Drake MD [address] [place] [address] 06/21/2025 10:30 AM EST Office Visit [facility] OPTOMETRY [address] [place] [address] Tarka, Yolie, OD 267 [place] [address] documented as of this encounter Visit Diagnoses Not on filedocumented in this encounter Additional Health Concerns Assessment Noted Time PHQ-9 Depression Total Score: 10 025 4:23 PM EDT documented as of this encounter Care Teams Bioprocess Development Engineer Relationship Specialty Start Date End Date Kimmy Drake MD [address] [place] [address] PCP - General Family Medicine 02/05/22 Rosalio Whitfield RN [address] [place] [address] Registered Nurse Family Medicine 03/29/25 Mary Alice Victor 03/29/25 documented as of this encounter
--- OUTSIDE RECORDS SUMMARY | 2025-05-08 11:23 | XMS_ITS | Encounter Summary ---
Author Organization [employer] Address [address] [facility] [address] [place] [address] Care Team Providers Care Communications Representative Name Role Phone Kimmy Drake MD Primary Care Provider [phone] Rosalio Whitfield RN Unavailable [phone] Mary Alice Victor Unavailable Reason for Visit * Reason Comments Care Management C3CM- f/u call #2. N ot available. Encounter Details Date Type Department Care Team ([facility] Contact Info) Description 05/07/2025 Patient Outreach [facility] [address] [place], [place] [phone] Kimmy Drake MD [address] [place], [place] [phone] Care Management (C3CM- f/u call #2. Not available. ) Social History Tobacco Use Types Packs/Day Years [...] Progress Notes * Rosalio Whitfield RN - 05/07/2025 1:49 PM EDT CM called [facility] at [phone] to f/u on referral. Left v/m requesting return call. CM Rosalio Whitfield RN and CHW Mary Alice Victor placed outbound call for a follow up call to patient. No answer at this time. CM was unable to leave a voicemail. CM will follow up with patient within 10 business days. documented in this encounter Plan of Treatment Upcoming Encounters Date Type Department Care Team (Late st Contact Info) Description 05/22/2025 10:30 AM EST Office Visit [facility] [address] [place], [place] [phone] Kimmy Drake MD [address] [place], [place] [phone] 06/21/2025 10:30 AM EST Office Visit [facility] [address] [place], [place] [phone] Gabyquoc Yolie, OD [address] [place] [address] documented as of this encounter Visit Diagnoses Not on filedocumented in this encounter Additional Health Concerns Assessment Noted Time PHQ-9 Depression Total Score: 10 025 4:23 PM EDT documented as of this encounter Care Teams Communications Representative Relationship Specialty Start Date End Date Kimmy Drake MD [address] [place] [phone] PCP - General Family Medicine 02/05/22 Rosalio Whitfield RN [address] [place] [id number] Registered Nurse Family Medicine 03/29/25 Mary Alice Victor 03/29/25 documented as of this encounter
--- OUTSIDE RECORDS SUMMARY | 2025-05-08 11:23 | XMS_ITS | Encounter Summary ---
Author Organization [employer] Address [address] [facility] [address] [place] [address] Care Team Providers Care Microwave Radio Technician Name Role Phone Kimmy Drake MD Primary Care Provider [phone] Rosalio Whitfield RN Unavailable [phone] Mary Alice Victor Unavailable Reason for Visit * Reason Comments Care Coordination SDOH f/u Encounter Details Date Type Department Care Team (Latest Contact Info) Description 05/07/2025 Patient Outreach [facility] [address] [place], [place] [phone] Kimmy Drake MD [address] [place], [place] [phone] Care Coordination (SDOH f/u) Social History Tobacco Use Types Packs/Day Years [...] Progress Notes * Mary Alice Victor - 05/07/2025 2:07 PM EDT CHW Mary Alice Victor/ CM Rosalio Whitfield RN placed call to patient to follow up on any SDOH, number isdisconnected and was unable to LVM. and address not verified. Will attempt again in 5 business days. documented in this encounter Plan of Treatment Upcoming Encounters Date Type Department Care Team (Late st Contact Info) Description 05/22/2025 10:30 AM EST Office Visit [facility] [address] [place] [address] Kimmy Drake MD [address] [place] [address] 06/21/2025 10:30 AM EST Office Visit [facility] [address] [place] [address] Yolie Zarate, OD [address] [place] [address] documented as of this encounter Visit Diagnoses Not on filedocumented in this encounter Additional Health Concerns Assessment Noted Time PHQ-9 Depression Total Score: 10 025 4:23 PM EDT documented as of this encounter Care Teams Microwave Radio Technician Relationship Specialty Start Date End Date Kimmy Drake MD [address] [place] [address] PCP - General Family Medicine 02/05/22 Rosalio Whitfield RN [address] [place] [address] Registered Nurse Family Medicine 03/29/25 Mary Alice Victor 03/29/25 documented as of this encounter
--- OUTSIDE RECORDS SUMMARY | 2025-05-08 11:23 | XMS_ITS | Encounter Summary ---
Author Organization [employer] Address [address] [facility] [address] [place] [address] Care Team Providers Care Hvac Lead Name Role Phone Kimmy Drake MD Primary Care Provider [phone] Rosalio Whitfield RN Unavailable [phone] Mary Alice Victor Unavailable Reason for Visit * Reason Onset Date Comments Appointment Request 11/09/2024 Encounter Details Date Type Department Care Team (Late st Contact Info) Description 11/09/2024 Telephone [facility] [address] [place] [address] Kimmy Drake MD [address] [place], [place] [phone] Appointment Request Social History Tobacco Use Types [...] Description 05/22/2025 10:30 AM EST Office Visit [facility] [address] [place] [address] Kimmy Drake MD [address] [place] [address] 06/21/2025 10:30 AM EST Office Visit [facility] [address] [place], [place] [phone] Yolie Zarate OD [address] [place] [address] documented as of this encounter Visit Diagnoses Not on filedocumented in this encounter Additional Health Concerns Assessment Noted Time PHQ-9 Depression Total Score: 9 03/01/20 23 12:59 PM EDT documented as of this encounter Care Teams Hvac Lead Relationship Specialty Start Date End Date Kimmy Drake MD [address] [place] [address] PCP - General Family Medicine 02/05/22 Rosalio Whitfield RN [address] [place] [address] Registered Nurse Family Medicine 03/29/25 Mary Alice Victor 03/29/25 documented as of this encounter
--- OUTSIDE RECORDS SUMMARY | 2025-05-08 11:23 | XMS_ITS | Clinical Summary ---
Author Organization [employer] Address [address] [facility] [address] [place] [address] Care Team Providers Care Radiology Specialist Name Role Phone Kimmy Drake MD Primary Care Provider [phone] Rosalio Whitfield RN Unavailable [phone] Mary Alice Victor Unavailable Allergies Active Allergy Reactions Criticality Noted Date Comments Acetaminophen Rash Low 08/14/2022 Amoxicillin Rash Low 08/14/2022 Egg Protein (Egg White) 01/04/2012 Other reaction(s): Itching Folic Acid Rash Low 10/11/2010 Gramineae Pollens 11/02/2023 Iron Rash,Itching High 10/11/2010 Iron Polysaccharide Rash Low 10/11/2010 Lamotrigine Rash Medium 03/01/2023 Meloxicam Itching,Nausea 04/20/2025 Milk (Cow) 01/04/2012 Other reaction(s): Stomach Pain [...] 90 tablet 3 12/20/19 25 026 Active Diclofenac Sodium 1 % gelIndication s:Pain in both feet APPLY TOPICALLY TO AFFECTED [...] 75 mL 1 02/21/20 25 026 Active lidocaine (Lidoderm) 5 % patch APPLY 1 PATCH TOPICALLY ONCE PER DAY. REMOVE & DISCARD PATCH WITHIN 12 HOURS OR DIRECTED 90 patch 03/12/20 25 Active DULoxetine (Cymbalta) [address] capsule Take 1 capsule (30 mg) by mouth 2 times daily. Do not crush or chew. 180 capsule 3 04/09/20 25 026 Active albuterol (Ventolin HFA) 108 (90 Base) MCG/ACT inhalerIndica tions:Wheezin g INHALE 2 PUFFS BY MOUTH EVERY 4-6 HRS NEEDED FOR WHEEZING 18 g 1 04/11/20 25 Active Azelastine HCl 137 MCG/SPRAY solution SPRAY 2 SPRAYS BY INTRANASAL ROUTE TWICE A DAY 04/02/20 25 Active gabapentin (Neurontin) 100 MG capsule Take 1 capsule by mouth three times daily. Start at bedtime, then gradually increase to three times daily as tolerated. 90 capsule 11 04/20/20 25 Active albuterol (Ventolin HFA) 108 (90 Base) MCG/ACT inhalerIndica tions:Wheezin g INHALE 2 PUFFS BY MOUTH EVERY 4-6 HRS NEEDED FOR WHEEZING 18 g 1 12/20/19 25 025 Discontinued DULoxetine (Cymbalta) [address] capsule Take 1 capsule (30 mg) by mouth 2 times daily. Do not crush or chew. 180 capsule 3 02/21/20 25 025 Discontinued(R eorder (will not trigger notification to Pharmacy)) meloxicam (Mobic) 7.5 MG tablet Take 1 tablet (7.5 mg) by mouth if needed in the morning and at bedtime for moderate pain. 60 tablet 1 04/16/20 25 025 Discontinued(M ed list cleanup (will not trigger notification to Pharmacy)) Active Problems Problem Noted Date Diagnosed Date Hearing problem 04/16/2025 Urinary incontinence 04/16/2025 Assessment & Plan (04/16/2025 12:49 PM EDT): - check urine - refer to urogynecologist for probable pelvic organ prolapse Cubital tunnel syndrome 04/16/2025 Assessment & Plan (04/16/2025 12:57 PM EDT): - starting OT - write script for elbow braces Bipolar affective disorder, current episode mixed, current episode severity unspecified (CMS/HCC) 02/20/2025 Numbness and tingling in left hand 02/20/2025 Assessment & Plan (04/16/2025 12:55 PM EDT): EMG/NCT on 04/03/2025 which showed mild left ulnar nerve slowing across cubital tunnel Likely mild cubital tunnel syndrome Starting OT soon Will prescribe elbow brace Moderate major depression (CMS/HCC) 02/19/2025 Assessment & Plan (04/16/2025 12:51 PM EDT): - last PHQ9 score 10 in December 2024 - currently prescribed duloxetine 30 mg bid Assessment & Plan (02/20/2025 4:46 PM EDT): - last PHQ9 score 10 in December 2024 - currently on duloxetine, increasing to 30 mg bid NINA (generalized anxiety disorder) 02/19/2025 Assessment & Plan (04/16/2025 12:52 PM EDT): NINA 7 score 19 on 12/21/2024 Patient was seen by integrated behavioral health service in February 2025. Currently waiting for outpatient Financial insecurity 02/19/2025 Housing insecurity 02/19/2025 Tobacco dependence 03/27/2024 Assessment & Plan (04/16/2025 12:53 PM EDT): Continue working on smoking cessation Chronic neck pain 11/14/2023 Assessment & Plan (11/14/2023 11:38 AM EDT): - refer to PT/OT Fibromyalgia 10/26/2022 Assessment & Plan (04/16/2025 12:52 PM EDT): - Seen by Pain Management - She has tried gabapentin, duloexetine, and milnacipran, which were all discontinued due to ineffectiveness - recently restarted duloxetine. - Encouraged to try acupuncture Assessment & Plan (02/20/2025 4:47 PM EDT): [...] fibromyalgia Allergic rhinitis 09/05/2022 Assessment & Plan (04/16/2025 12:44 PM EDT): -Pt was seeing allergy / pipe recovery specialist, Dr. Linda, but he has retired -Referred to another specialist, but patient missed appointment due to lack of transportation at that time Assessment & Plan (11/14/2023 11:37 AM EDT): -Pt was seeing allergy / pipe recovery specialist, Dr. Linda, but he has retired -Referred to another specialist, but patient missed appointment due to lack of transportation at that time Assessment & Plan (11/09/2022 5:44 AM EDT): -Pt was seeing allergy / pipe recovery specialist, Dr. Linda, but he has retired -Pt would like to be referred to a new specialist; will make a referral Assessment & Plan (09/05/2022 4:10 AM EST): -Pt was seeing allergy / pipe recovery specialist, Dr. Linda, but he has retired -Pt would like to be referred to a new specialist; will make a referral Metabolic dysfunction-associ ated steatotic liver disease (MASLD) 09/05/2022 Assessment & Plan (04/16/2025 12:45 PM EDT): -combination of drug-induced, alcohol consumption, and fatty liver / PCOS / weight -previously following with [facility], last seen in May 2022. Refer back. -continue working on lifestyle modifications -continue limiting [...] liver / PCOS / weight -following with [facility] -continue working on lifestyle modifications to achieve healthy weight -continue limiting alcohol intake to sensible amount >>ASSESSMENT AND PLAN FOR TRANSAMINITIS WRITTEN ON 10/26/2022 3:03 PM BY ROLLY WATKINS -combination of drug-induced, alcohol consumption, and fatty liver / PCOS / weight -following with [facility] -continue working on lifestyle modifications to achieve healthy weight -continue limiting alcohol intake to sensible amount Numbness and tingling in right hand 09/05/2022 Assessment & Plan (02/20/2025 4:50 PM EDT): - evaluated by [facility] in December and January 2023 - [...] MD - Previously referred to neurologist and paint mixer machine, keep appt as scheduled - since it is with pain, neuropathic. DDx includes fibromyalgia - Restart Gabapentin - Consider Cymbalta - optimize treatment for fibromyalgia Assessment & Plan (11/14/2023 11:25 AM EDT): - evaluated by [facility] in December and January 2023 - NCT/EMG showed mild ulnar nerve neuropathy across cubital tunnel - MRI showed mild CMC arthritis - refer to OT for hand and PT for neck Asthma 08/14/2022 Assessment & Plan (04/16/2025 12:53 PM EDT): -Previously on symbicort and albuterol -Continue albuterol inhaler and nebulizer treatment prn. Patient needs nebulizer because her symptoms improve with nebulizer better than inhaler. She uses inhaler only outside. -Consider changing albuterol to budesonide / formoterol (Symbicort) as SMART -Work on smoking cessation Assessment & Plan (01/01/2025 5:56 AM EDT): [...] remaining non-smoker Nephrolithiasis 08/14/2022 Assessment & Plan (04/16/2025 12:48 PM EDT): -continue adequate fluid intake -referred back to Dr. Albarran per pt's request last year, but patient did not keep an appointment -referred to another urologist in [place] because of proximity, but patient had several no-shows -referring to urogynecologist for mainly urinary incontinence. If urogynecologist recommends a referral to another urologist, will refer back to [facility] Assessment & Plan (02/20/2025 4:44 PM EDT): -continue adequate fluid intake -referred back to Dr. Albarran per pt's request last year, but patient did not keep an appointment -referred to another urologist in [place] per patient's request Assessment & Plan (01/01/2025 5:54 AM EDT): -continue adequate fluid intake -referred back to Dr. Albarran per pt's request last year, but patient did not keep an appointment -refer to another urologist in [place] per patient's request Assessment & Plan (11/14/2023 [...] Gastroesophageal reflux disease 03/25/2020 Assessment & Plan (04/16/2025 12:46 PM EDT): - previously following with [facility], last seen in May 2022 - previously on omeprazole 20 mg bid and famotidine 40 mg nightly - currently on pantoprazole 40 mg bid - work on lifestyle modification - avoid NSAIDs and other irritants - referring back to GI Assessment & Plan (02/20/2025 12:05 PM EDT): - previously following with [facility], last seen in May 2022 - previously on omeprazole 20 mg bid and famotidine 40 mg nightly - currently on pantoprazole - work on lifestyle modification - avoid NSAIDs and other irritants - consider referring back to GI if refractory Assessment & Plan (01/01/2025 5:55 AM EDT): - previously following with [facility], last seen in May 2022 - previously on omeprazole 20 mg bid and famotidine 40 mg nightly - currently on pantoprazole - work on lifestyle modification - avoid NSAIDs and other irritants - consider referring back to GI if refractory Assessment & Plan (11/14/2023 11:28 AM EDT): - previously following with [facility], last seen in May 2022 - [...] activity Mood disorder 12/13/2013 Assessment & Plan (04/16/2025 12:50 PM EDT): -previously connected with S provider, WOOD CARVING MACHINE OPERATOR -Previous Dx: Bipolar disorder, PTSD, ADD, ODD -Previously tried medications: Lamictal; perphenazine; milnacipran; duloexetine -Hx marked transaminitis with lamotrigine. -Pt seems to have been developing healthy coping skills, including exercise. -Currently being prescribed duloxetine. However, not taking as prescribed. Encouraged to improve adherence. Continue duloxetine 30 mg bid. Consider 60 mg daily to improve adherence. -Seen by integrated behavioral health service clinician today due to worsening anxiety / depressive symptoms in February 2025. Assessment & Plan (02/20/2025 4:46 PM EDT): -previously connected with S provider, WOOD CARVING MACHINE OPERATOR -Previous Dx: Bipolar disorder, PTSD, ADD, ODD [...] 11:36 AM EDT): -pt is connected with S provider, WOOD CARVING MACHINE OPERATOR -Previous Dx: Bipolar disorder, PTSD, ADD, ODD [...] 5:44 AM EDT): -pt is connected with S provider, WOOD CARVING MACHINE OPERATOR -Previous Dx: Bipolar disorder, PTSD, ADD, ODD [...] 4:15 AM EST): -pt is connected with S provider, WOOD CARVING MACHINE OPERATOR -Previous Dx: Bipolar disorder, PTSD, ADD, ODD [...] r/o pain coming from kidney stones vs BAR STAFF as ovarian or uterine Seems from exam [...] organization. Date Type Department Care Team Description 05/07/2025 Patient Outreach [facility] [address] [place] [phone] Kimmy Drake MD Care Coordination (SDNM f/u) 05/07/2025 Patient Outreach [facility] [address] [place] [phone] Kimmy Drake MD Care Management (C3- f/u call #2. Not available. ) 04/25/2025 Patient Outreach [facility] [address] [place] [address] Kimmy Drake MD Care Coordination (SDNM f/u) 04/25/2025 Patient Outreach [address] [address] Kimmy Drake MD Care Management (C3- f/u call lvm) 04/25/2025 Telephone [facility] [address] [place] [phone] Kimmy Drake MD PFT ORDER 04/20/2025 Orders Only [address] [address] Kimmy Drake MD Dyspnea, unspecified type (Primary Dx) 04/20/[address] [address] Kimmy Drake MD Nurse Triage 04/18/[address] [address] Kimmy Drake MD Durable Medical Equipment 04/13/2025 Patient Outreach [address] [address] Kimmy Drake MD Care Management (C3CM- f/u call) 04/10/[address] [address] Kimmy Drake MD Wheezing 04/09/2025 3:30 PM EDT Office Visit [address] [address] Kimmy Drake MD Chills (Primary Dx); Routine screening for STI (sexually transmitted infection); Urinary frequency; Allergic rhinitis, unspecified seasonality, unspecified trigger; Hearing disorder, unspecified laterality; Metabolic dysfunction-associat ed steatotic liver disease (MASLD); Gastroesophageal reflux disease, unspecified whether esophagitis present; Nephrolithiasis; Urinary incontinence, unspecified type; PTSD (post-traumatic stress disorder); Mood disorder (CMS/HCC); Moderate major depression (CMS/HCC); Bipolar affective disorder, current episode mixed, current episode severity unspecified (CMS/HCC); NINA (generalized anxiety disorder); Fibromyalgia; Tobacco dependence; Mild intermittent asthma without complication; Numbness and tingling in right hand; Numbness and tingling in left hand; Cubital tunnel syndrome of both upper extremities 04/09/2025 Travel 04/06/2025 Patient Outreach [address] [address] Kimmy Drake MD 04/06/2025 Patient Outreach [address] [address] Kimmy Drake MD Care Coordination (Appt reminder) 03/30/2025 Plan of Care Documentation [address] [phone] 03/30/2025 Patient Outreach [address] [address] Kimmy Drake MD Care Coordination (SDOH) 03/30/2025 Patient Outreach [address] [address] Kimmy Drake MD Care Management (C3CM- initial assessment/ enrollment) 03/29/2025 Patient Outreach [address] [address] Kimmy Drake MD Care Coordination (CM/CHW outreach) 03/29/2025 Patient Outreach [address] [address] Kimmy Drake MD Care Coordination (CHW chart review) 03/29/2025 Patient Outreach [address] [address] Kimmy Drake MD Care Management (C3CM- chart review) 03/29/2025 Patient Outreach [address] [address] Kimmy Drake MD 03/12/[address] [address] Kimmy Drake MD Nurse Triage 03/09/2025 10:40 AM EDT Office Visit [facility] [address] [address] Guillaume Patel MD Numbness and tingling in left hand (Primary Dx) 03/09/[address] [address] Kimmy Drake MD 03/09/[address] [address] Eli Tucker, RN Nurse Triage 03/09/2025 Travel 03/09/[address] [address] Kimmy Drake MD Nurse Triage 02/19/2025 10:15 AM EDT Office Visit [address] [address] Kimmy Drake MD Bipolar affective disorder, current [...] tingling in right hand 02/19/2025 Patient Outreach [address] [address] Kimmy Drake MD Care Coordination (CHW outreach for [facility] housing search-referral completed ) 02/19/2025 Travel 02/16/[address] [phone] Kimmy Drake MD chartprep from Last 3 Months Immunizations Immunization Administration Dates Next Due HPV, Quadrivalent 05/29/2011 Hep A, Adult 12/19/2024,11/08/2023 Hep B, adult 12/19/2024 Influenza injectable quadriv alent preservative free 04/02/2022 Influenza, IIV3, injectable 05/11/2014, 1,03/14/2010 Moderna Covid-19 Vaccine 12+ 01/13/2021 Pfizer Covid-19 Vaccine 12+ 11/08/2023, 2 Pneumococcal Conjugate PCV 20 11/08/2023 Pneumococcal Polysaccharide [...] Sign Reading Time Taken Comments Blood Pressure 120/86 04/09/2025 3:29 PM EDT Pulse 76 04/09/2025 3:29 PM EDT Temperature 37.2 C (98.9 F) 04/09/2025 3:29 PM EDT Respiratory Rate 20 04/09/2025 3:29 PM EDT Oxygen Saturation 98% 04/09/2025 3:29 PM EDT Inhaled Oxygen Concentration - - Weight 107 kg (236 lb 6.4 oz) 04/09/2025 3:29 PM EDT Height 165.1 cm (5' 5 ) 03/09/2025 10:30 AM EDT Body Mass Index 39.34 03/09/2025 10:30 AM EDT Plan of Treatment Upcoming Encounters Date Type Department Care Team (Late st Contact Info) Description 05/22/2025 10:30 AM EST Office Visit [facility] [address] [place] [address] Kimmy Drake MD [address] [place] [address] 06/21/2025 10:30 AM EST Office Visit [facility] [address] [place] [address] Yolie Zarate, OD [address] [place] [address] Health Maintenance Due Date Last Done Comments Family Planning (PISQ) 2006 HPV Vaccines (2 - 3-dose series) 06/26/2011 05/29/2011 Cervical Cancer Screening 01/10/2024 HPV/Cotest 01/10/2024 Pap Smear 01/10/2024 01/09/2021 Hepatitis B Vaccines (2 of 3 - 19+ 3-dose series) 01/16/2025 12/19/2024 COVID-19 Vaccine ( season) 2025 11/08/2023, 03/13/2022, 01/13/2021, Additional history exists Influenza Vaccine (#1) 2025 , 05/11/2014, 04/23/2011, Additional history exists Depression Monitoring 06/22/2025 12/21/2024, 025 Alcohol/Substance Use Screening 12/19/2025 12/19/2024 Disability Screening 12/19/2025 12/19/2024 SDOH Screening 03/30/2026 03/30/2025 Tobacco Screening 04/16/2026 04/16/2025 DTaP/Tdap/Td Vaccines (6 - Td or Tdap) [...] Procedure Name Priority Date/Time Associated Diagnosis Comments NERVE CONDUCTION TEST Routine 04/03/2025 Numbness and tingling in left hand HEPATITIS C AB W/REFL TO HCV RNA, [...] Recently Relevant to Health Maintenance Results * Nerve conduction test (04/03/2025) Kimmy Drake MD NEUROLOGY ORDERABLES Final Resul t * (ABNORMAL) Lipid Panel with Reflex to Direct LDL (12/19/2024 12:26 PM EDT) Triglycerides 169(H) <150 mg/dL [facility] Comment:Desirable Triglyceri de: less than 150 mg/dLBorderline High Triglyceride 150-199 mg/dLHigh Triglyceride: 200-499 mg/dLVery High Triglyceride: greater than or equal to 5OO mg/dL Cholesterol 196 <200 mg/dL [facility] Comment:Desirable Cholestero l: less than 200 mg/dLBorderline High Cholesterol: 200-239 mg/dLHigh Cholesterol: greater than 239 mg/dL LDL Cholesterol Calculated 118(H) <100 mg/dL [facility] Comment:Desirable LDL: less than 100 mg/dLNear Optimal/Above Optimal LDL: 110- 129 mg/dLBorderline High LDL: 130-159 mg/dLHigh LDL: 160-189 mg/dLVery High LDL: greater than or equal to 190 mg/dL HDL Cholesterol 45 >40 mg/dL [facility] Comment:Desirable HDL: great er than 40 mg/dL Note: This HDL assay may give artificially low results in patients with liver disease. Blood 12/19/2024 12:2 6 PM EDT 12/19/2024 4:54 PM EDT Kimmy Drake MD LAB BLOOD ORDERABLES Final Resul t Performing Organization Address [facility]/ZIP Co de Phone Number [facility] [address] [place] [address] [phone] * Hepatitis C Antibody with Reflex to HCV, RNA, Quantitative, Real-Time PCR (12/19/2024 12:26 PM EDT) Hepatitis C Antibody Nonreactive Nonreactive [facility] Comment:Antibodies to HCV no t detected; does not exclude early acuteHCV infection. Blood Venous blood specimen / Unknown 12/19/2024 12:26 PM EDT 12/19/2024 4:54 PM EDT Kimmy Drake MD LAB BLOOD ORDERABLES Final Resul t Performing Organization Address [facility]/ZIP Co de Phone Number [facility] [address] [place] [address] [phone] * HIV-1/2 Antigen and Antibodies, Fourth Generation, with Reflexes (12/19/2024 12:26 PM EDT) HIV AB/AG Nonreactive Nonreactive [facility] Comment:HIV-1 p24 Ag and/or HIV-1/HIV-2 Ab not detected.A test result that is nonreactive does not exclude thepossibility of exposure to or infection with HIV-1 and/orHIV-2. Nonreactive results in this assay for individualswith prior exposure to HIV-1 and/or HIV-2 may be due toantigen and antibody levels that are below the limit ofdetection of this assay.The [facility] HIV Ag/Ab Combo assay result andsupplemental assay results should be interpreted inconjunction with the patient's clinical presentation,history and other laboratory results. If the results areinconsistent with clinical evidence, additional testing issuggested to confirm the result. Blood Venous blood specimen / Unknown 12/19/2024 12:26 PM EDT 12/19/2024 4:54 PM EDT Kimmy Drake MD LAB BLOOD ORDERABLES Final Resul t [facility] [address] [place] [address] [phone] * Hm Pap Smear (01/09/2021) Pap Negative for intraephithelial lesion or malignancy Negative for intraephithelial lesion or malignancy, Other us Historical Provider HEALTH MAINTENANCE Final Result from Last 3 Months or Most Recently Relevant to Health Maintenance [place] [address] [address] [address] C3 Care Teams Radiology Specialist Relationship Specialty Start Date End Date Kimmy Drake MD [address] [place] [address] PCP - General Family Medicine 02/05/22 Rosalio Whitfield, SPENCER [address] [place] [address] Registered Nurse Family Medicine 03/29/25 Mary Alice Victor 03/29/25
--- OUTSIDE RECORDS SUMMARY | 2025-05-08 11:23 | XMS_ITS | Encounter Summary ---
Author Organization [employer] Address [address] [facility] [address] [place] [address] Care Team Providers Care Sql Database Administrator Name Role Phone Kimmy Drake MD Primary Care Provider [phone] Rosalio Whitfield RN Unavailable [phone] Mary Alice Victor Unavailable Reason for Referral * Consultation (Routine) - Closed Specialty Diagnoses / Procedures Referred By Carmen alanis Referred To Contact Urology Diagnoses Nephrolithiasis Kimmy Darke MD [address] [place] [address] Phone: tel: fax: [facility] Referral ID Status Reason Start Date Expiration Date V isits Requested Visits Authorized [id number] Closed Specialty Services Required 11/30/2023 11/29/2024 6 6 * Consultation (Routine) - Closed Specialty Diagnoses / Procedures Referred By Carmen alanis Referred To Contact Podiatry Diagnoses Pain in toes of both feet Deformity of right foot Kimmy Drake MD [address] [place] [address] Phone: tel: fax: Kyler Reed DPM Phone: tel: fax: Referral ID Status Reason Start Date Expiration Date V isits Requested Visits Authorized [id number] Closed Specialty Services Required 12/02/2023 12/01/2024 6 6 Encounter Details Date Type Department Care Team (Late st Contact Info) Description 11/26/2023 Orders Only [facility] [address] [place] [address] Kimmy Drake MD [address] [place] [address] Pain in toes of both feet (Primary [...] with others, in a hotel, in a skilled nursing, living outside on the street, on a [...] 05/22/2025 10:30 AM EST Office Visit [facility] [address] [place] [address] Kimmy Drake MD [address] [place] [address] 06/21/2025 10:30 AM EST Office Visit [facility] [address] [place], [place] [phone] Yolie Zarate, OD [address] [place] [address] Scheduled Referrals Name Type Priority Associated Diagnoses [...] documented as of this encounter Care Teams Sql Database Administrator Relationship Specialty Start Date End Date Kimmy Drake MD [address] [place] [address] PCP - General Family Medicine 02/05/22 Rosalio Whitfield RN [address] [place] [phone] Registered Nurse Family Medicine 03/29/25 Mary Alice Victor 03/29/25 documented as of this encounter
[2025-05-08 13:43] LABS: Appearance Urine Turbid; Glucose Urine UA Negative (Negative); MANUAL DIFF FLAG NO; PH 5.5 (5.0-9.0); Specific Gravity - Urine >= 1.030 (1.005-1.025); UMIC TRIGGER UACC YES
[2025-05-08 13:56] LABS: Hematocrit 42.3 % (37.0-47.0); Hemoglobin 14.0 g/dl (12.0-16.0); Imm Gran Abs Auto 0.03 X10*3/uL (0.00-0.03); Imm Gran Pct Auto 0.3 % (0.0-0.4); Lymphocytes Absolute Auto 2.3 X10*3/uL (1.2-4.9); Mean Corpuscular HGB Conc 33.1 g/dl (31.0-35.0); Mean Corpuscular Hemoglobin 30.4 pg (27.0-33.0); Mean Corpuscular Volume 91.8 fL (80.0-98.0); NRBC Abs Auto 0.000 X10*3/uL (0.0-0.012); NRBC Pct Auto 0.0 /100WBC (0.0-0.2); Platelet Count 305 X10*3/uL (160-400); Red Blood Count 4.61 X10*6/uL (4.20-5.50); White Blood Count 10.5 X10*3/uL (4.8-10.8)
[2025-05-08 15:09] LABS: CT PCR Urine NOT DETECTED (Not Detect.); NG PCR Urine NOT DETECTED (Not Detect.)
[2025-05-08 17:22] LABS: Alanine Aminotransferase 19 U/L (0-31); Albumin Level 4.7 g/dL (3.5-5.0); Alkaline Phosphatase 70 U/L (39-117); Anion Gap 11 (12-20); Aspartate Amino Transferase 21 U/L (5-31); Blood Urea Nitrogen 14 mg/dL (9-16); Calcium 9.4 mg/dL (8.4-10.2); Carbon Dioxide 25 mmol/L (22-29); Chloride 107 mmol/L (96-108); Estimated Glomerular Filt Rate > 60; Potassium 3.9 mmol/L (3.3-5.1); Sodium 139 mmol/L (135-145); Total Protein 8.0 g/dL (6.5-8.0)
[2025-05-09 03:19] LABS: Syphilis Screen Nonreactive (Nonreactive)
[2025-05-09 03:43] LABS: HBsAGNum1 0.50 S/CO (0.00-0.99); HIV Num 1 0.06 S/CO (0.00-0.99); Hepatitis B Surface Antigen Negative (Negative); ~HepC Num1 0.07 S/CO (0.00-0.79); ~Hepatitis C Antibody Nonreactive (Nonreactive)
== END 2025-05-08 09:55 | disposition home or self-care (01) ==
LOC: HO.HHCL 09:54
PROVIDERS: PCP Family Medicine; Visit Provider Family Medicine
DX: Z11.4 Encounter for screening for human immunodeficiency virus [HIV] (principal); Z11.59 Encounter for screening for other viral diseases; Z11.3 Encounter for screening for infections with a predominantly sexual mode of transmission; Z20.2 Contact with and (suspected) exposure to infections with a predominantly sexual mode of transmission; R35.0 Frequency of micturition; R68.83 Chills (without fever)
CPT/HCPCS: 80053; 81001; 84443; 85025; 85652; 86140; 86780; 86803; 87340; 87389; 87491; 87591